=== PATIENT | female | born 1995 | race Caucasian/White ===

== ENCOUNTER 2019-12-14 08:52 | Inpatient (IN) ==
[2019-12-14] MEDS ORDERED: ZOFRAN IV ONE (09:45)
[2019-12-14] MEDS ORDERED: NS 1,000 ML IV ONE ×2 (09:45)
[2019-12-14] MEDS ORDERED: MORPHINE IV ONE (09:45)
[2019-12-14] MEDS ORDERED: ZOSYN 4.5 GM in NS 100 ML IV ONE (09:45)
[2019-12-14 10:12] LABS: BASO# 0.08 X1000 (0.0-0.2); BASO% 0.6 % (0.0-0.8); EOS# 0.28 X1000 (0.0-0.7); EOS% 2.2 % (0.0-10.0); HEMATOCRIT 36.5 % (37.0-47.0); HEMOGLOBIN 11.9 g/dL (12.0-16.0); IMM GRAN# 0.02 X1000 (0.0-0.04); IMM GRAN% 0.2 % (0.0-0.5); LYMPH# 1.79 X1000 (1.2-3.4); LYMPH% 14.1 % (20.5-51.1); MCH 26.4 PG (27-31); MCHC 32.6 g/dL (33-37); MCV 80.9 FL (81-99); MONO# 0.98 X1000 (0.11-0.59); MONO% 7.7 % (1.7-9.3); MPV 9.1 FL (7.4-10.4); NEUT# 9.56 X1000 (1.4-6.5); NEUT% 75.2 % (42.2-75.2); PLT 410 X1000 (130-400); RBC 4.51 XMIL (4.2-5.4); RDW 13.2 % (11.5-14.5); WBC 12.71 X1000 (4.8-10.8)
[2019-12-14 11:06] LABS: ALB/GLOB RATIO 0.8; ALBUMIN 3.7 g/dL (3.5-5.0); CALCIUM 8.9 mg/dL (8.8-10.2); CREATININE 2.6 mg/dL (0.5-0.9); MAGNESIUM 2.4 mg/dL (1.5-2.7); PHOSPHORUS 4.1 mg/dL (2.7-4.5); POTASSIUM 4.2 mmol/L (3.5-5.1); TOTAL BILIRUBIN 0.48 mg/dL (0.20-1.00); TOTAL PROTEIN 8.4 g/dL (6.3-8.3)
[2019-12-14 11:57] LABS: URINE SOURCE CATH
[2019-12-14 12:11] LABS: BILIRUBIN URINE NEGATIVE (NEGATIVE); BLOOD URINE SMALL (NEGATIVE); COLOR ORANGE; GLUCOSE URINE NEGATIVE (NEGATIVE); KETONE URINE NEGATIVE (NEGATIVE); LEUKOCYTES URINE LARGE (NEGATIVE); NITRITE URINE NEGATIVE (NEGATIVE); PROTEIN URINE 300 mg/dL (NEGATIVE); TURBIDITY URINE TURBID (CLEAR); UROBILINOGEN URINE 6 mg/dL (NORMAL)
[2019-12-14 12:18] LABS: UR AMPHETAMINES QUAL NONE DETECTED (NONE DETECT); UR BARBITUATES QUAL NONE DETECTED (NONE DETECT); UR BENZODIAZEPIN QUAL NONE DETECTED (NONE DETECT); UR CANNABINOIDS QUAL NONE DETECTED (NONE DETECT); UR COCAINE QUAL NONE DETECTED (NONE DETECT); UR METHADONE QUAL NONE DETECTED (NONE DETECT); UR OPIATES QUAL NONE DETECTED (NONE DETECT); UR OXYCODONE QUAL NONE DETECTED (NONE DETECT); UR PCP QUAL NONE DETECTED (NONE DETECT)
[2019-12-14 12:32] LABS: UR EPITHELIAL CELLS <10 /HPF (<10); URINE BACTERIA 2+ /HPF; URINE RBC TNTC /HPF (<10); URINE WBC TNTC /HPF (<10); URINE YEAST NONE SEEN
--- NOTE | 2019-12-14 13:19 | Diag Imaging Result Doc PS360 ---
CHEST-2 VIEWS - 12/14/2019 INDICATION: short of breath COMPARISON: 12/19/2018 FINDINGS: The lungs are normally expanded and clear. Heart size and mediastinal contours are normal. No pneumothorax or pleural effusion. IMPRESSION: Negative exam. Electronically signed by Rosalio Bryant 12/14/2019 1:17 PM
--- NOTE | 2019-12-14 13:36 | Diag Imaging Result Doc PS360 ---
EXAM: CT ABDOMEN/PELVIS W/O CONTRAST 12/14/2019 HISTORY: abd pain, acute kidney injury TECHNIQUE: This exam was performed using automated exposure control, adjustment of mA or kV according to patient size, and/or use of iterative reconstruction technique. COMMENT: There are calcified granulomata present in the left lower lobe which were at least in part demonstrated on the previous study of 11/28/2017. There is no evidence of acute disease in the visualized portion of the chest. The spleen is not enlarged. There is no evidence of cholelithiasis. The adrenal glands are not enlarged. There is a partially calcified and atrophic left kidney. This was also the case at the time the previous study. There is hydronephrosis on the right despite the presence of a stent. There is gas in the urinary bladder and the bladder wall is somewhat thickened in appearance. The lower pigtail of the stent is in the bladder. The right ureter is markedly thickened and distended. The nephrostomy catheter which was present at the time the previous study is no longer present. The degree of hydronephrosis is worse. The appendix is not distended. There is some solid stool in the left colon. The small bowel is not distended. The aorta is not distended. There is solid formed stool in the rectum. There is no evidence of free fluid. The regional skeleton is stable in appearance. IMPRESSION: Worsened obstructive changes in the right, solitary, kidney, and ureter. Possible cystitis. Constipation. Electronically signed by Alfredo Hull 12/14/2019 1:33 PM
--- NOTE | 2019-12-14 14:13 | PROVIDER DOCUMENTATION ---
This chart was entered by Francoise Flores Scribe, acting as scribe for Hi Morales MD. HPI-Abdominal Pain/GI Problem - General Chief Complaint: Nausea/Vomiting Stated Complaint: VOMITING STOMACH PAIN Time Seen by Provider: 12/14/19 09:37 Source: patient Allergies/Adverse Reactions: Patient Allergies Allergy/AdvReac Type Severity Reaction Status Date / Time povidone-iodine Allergy Intermediate RASH Verified 12/14/19 09:30 [From Betadine] ceftriaxone [From Rocephin] Allergy ANAPHYLAXIS Verified 12/14/19 09:30 - History of Present Illness-ABD Nature of Presenting Problems: 24yof presents to ED cc nausea,vomiting, generalized abdominal pain with LUQ greater than RUQ, decreased urine output and foul smelling urine for last 24hrs. Pt denies blood in vomiting or urine. Pt has hx of kidney disease, stents, nephrectomy and has to self cath every 6hrs. Pt is unsure if appendix is removed. Abdominal Pain Onset Location: reports: generalized abdomen Pain Radiation: reports: RUQ, LUQ Quality of Pain: reports: aching Severity in ED: reports: mild, moderate Onset/Duration: reports: 24 hours ago Timing: reports: still present Activities at Onset: reports: light activity Modifying Factors: worse with: vomiting Associated Symptoms: reports: genitourinary problems, nausea, vomiting Emesis Description: reports: clear Similar Symptoms Previously?: Yes Review of Systems - Adult - REVIEW OF SYSTEMS - ADULT Constitutional: reports: see HPI. denies: chills, fever Eyes: reports: no symptoms reported Ears, Nose, Mouth & Throat: reports: no symptoms reported Cardiovascular: reports: no symptoms reported Respiratory: reports: no symptoms reported Gastrointestinal: reports: see HPI, abdominal pain (generalized), nausea, vomi ting. denies: diarrhea Genitourinary: reports: see HPI, urinary retention (decreased output), other (foul smeeling urine). denies: hematuria Musculoskeletal: reports: no symptoms reported Integumentary: reports: no symptoms reported Neurological: reports: no symptoms reported Psychiatric: reports: no symptoms reported Endocrine: reports: no symptoms reported Hematologic/Lymphatic: reports: no symptoms reported Allergic/Immunologic: reports: no symptoms reported All Other Systems: Reviewed and Negative Past History - Adult - PAST MEDICAL HISTORY-ADULT Review of Records: reports: Old Records Reviewed, Nursing Assessment Review, Medications Reviewed, Social history reviewed & non-contributory. Major Childhood Illnesses: reports: denies history Cardiovascular: reports: denies history Respiratory: reports: asthma, sleep apnea Gastrointestinal: reports: denies history Obstetrical/Gynecological: reports: denies history Genitourinary: reports: kidney disease, kidney stones, other (R nephrostomy; neurogenic bladder) Musculoskeletal: reports: denies history Neurological: reports: denies history Psychiatric: reports: depression Endocrine/Immune: reports: denies history Other Conditions: reports: denies history - PRIOR SURGERIES/PROCEDURES Surgical/Procedure History: reports: tonsillectomy, other (R nephrostomy; renal stent) - PRIOR HOSPITALIZATIONS Prior Hospitalizations: reports: for other non-related - IMMUNIZATION STATUS Childhood Immunizations: See Nurse Assessment Flu Vaccine: See Nurse Assessment - FAMILY HISTORY Family History: reviewed, not pertinent Physical Exam-General - PHYSICAL EXAM-ADULT Initial Vital Signs Reviewed: Yes - CONSTITUTIONAL General Appearance: alert, no apparent distress, thin. negative: anxious, combative - EYES Eyes: PERRL/EOMI, pink conjunctivae. negative: photophobia - HEAD, EARS, NOSE, MOUTH & THROAT HENMT: normocephalic/atraumatic, other (speech deficit). negative: moist mucous membranes (dry), angioedema - NECK Neck: supple - RESPIRATORY Respiratory: chest non-tender, lungs clear, normal breath sounds. negative: wheezing - CARDIOVASCULAR Cardiovascular: normal peripheral pulses, tachycardia. negative: bradycardia - GASTROINTESTINAL (ABDOMEN) Abdominal Exam: soft, guarding (voluntary), tenderness (generalized with moderate palpation). negative: normal bowel sounds (hypoactive), rebound - MUSCULOSKELETAL Extremity: normal inspection, normal capillary refill. negative: deformity - SKIN Integumentary: normal color. negative: diaphoresis, jaundice - PSYCHIATRIC Psych/Mental Status: normal mood/affect, oriented x 3. negative: anxious, disheveled Progress - PLAN OF CARE/RESULTS Progress/Plan/Lab Results: Vital Signs - 8 hr 12/14/19 09:02 Temperature 98.2 F Pulse Rate 110 H Respiratory Rate 18 Blood Pressure 110/62 O2 Sat by Pulse Oximetry 96 Orders Category Date Time Status ED: Urine Bedside NOW Care 12/14/19 09:06 Active NEWS Score 2-4:Order NEWS Lactate Series NOW Care 12/14/19 09:05 Active Saline Loc DIRECTED Care 12/14/19 09:06 Active NPO Diet 12/14/19 09:[address] ABDOMEN/PELVIS W/O CONTRAST [CT] Stat Exams 12/14/19 09:44 Ordered AMYLASE [CHEM] Stat Lab 12/14/19 09:06 Uncollected BLOOD CULTURE [BLDCUL] Stat Lab 12/14/19 09:44 Ordered CBC WITH ELECTRONIC DIFF [HEME] Stat Lab 12/14/19 09:06 Uncollected COMPREHENSIVE METABOLIC PANEL [CHEM] Stat Lab 12/14/19 09:06 Uncollected LACTATE, PLASMA [CHEM] Q3H Lab 12/14/19 09:15 Uncollected LACTATE, PLASMA [CHEM] Q3H Lab 12/14/19 12:15 Uncollected LACTATE, PLASMA [CHEM] Q3H Lab 12/14/19 15:15 Uncollected LIPASE [CHEM] Stat Lab 12/14/19 09:06 Uncollected MAGNESIUM [CHEM] Stat Lab 12/14/19 09:44 Uncollected URINALYSIS W/POSS RFLX CULT [URINALYSIS] Stat Lab 12/14/19 09:06 Uncollected URINE DRUG SCREEN Stat Lab 12/14/19 09:44 Uncollected phos [PHOSPHORUS] [CHEM] Stat Lab 12/14/19 09:44 Uncollected 0.9% Sodium Chloride Inj [Ns] 1,000 ml Med 12/14/19 09:45 Active IV 999 mls/hr 0.9% Sodium Chloride Inj [Ns] 1,000 ml Med 12/14/19 09:45 Active IV 999 mls/hr Morphine Med 12/14/19 09:45 Discontinued 4 mg IV NOW ONE Ondansetron [Zofran] Med 12/14/19 09:45 Discontinued 4 mg IV NOW ONE Piperacillin/Tazobactam [Zosyn] 4.5 gm Med 12/14/19 09:45 Active 0.9% Sodium Chloride Inj [Ns] 100 ml IV NOW Result Diagrams: 12/14/19 10:00 12/14/19 10:00 - REASSESSMENT Reassessment #1 Time Reassessed: 14:04 Status: improving (Patient meets criteria for sepsis, although lactate is normal, has 2 SIRS criteria with acute on chronic renal failure and pyel onephritis. Given Zosyn and low dose vanco per pharmacy dosing. Will need admission to hospitalist and consult to urology. I offered transfer to her urologist at [facility], patient states she prefers to stay here.) - XRAY 1 XRAY: Bilateral XRAY Study: Chest Impression: See EMR Report (IMPRESSION: Negative exam. Electronically signed by Rosalio Bryant 12/14/2019 1:17 PM) - CT/MRI 1 CT Study: Abdomen Impression: See EMR Report (IMPRESSION: Worsened obstructive changes in the right, solitary, kidney, and ureter. Possible cystitis. Constipation. Electronically signed by Alfredo Hull 12/14/2019 1:33 PM) - CONSULTS/PCP/HOSPITALIST Notification #1 *Consult/PCP/Hospitalist*: Eleuterio urology front end technician paged at 1402 Time Discussed: 14:11 Consult Disposition: other (will consult) #2 Consult: FELY Quesada, hospitalist paged at 1402 Time Discussed: 14:12 Consult Disposition: Will see in ED, other Departure - Departure Date of Disposition Decision: 12/14/19 Time of Disposition Decision: 14:06 DIAGNOSIS: Pyelonephritis, Ureteral obstruction, right Acute on chronic renal failure Qualifiers: Acute renal failure type: unspecified Chronic kidney disease stage: stage 3 (moderate) Qualified Code(s): N17.9 - Acute kidney failure, unspecified; N18.3 - Chronic kidney disease, stage 3 (moderate) Sepsis with acute organ dysfunction without septic shock Qualifiers: Sepsis type: sepsis due to unspecified organism Severe sepsis acute organ dysfunction type: acute renal failure Acute renal failure type: with acute tubular necrosis Qualified Code(s): A41.9 - Sepsis, unspecified organism; R65.20 - Severe sepsis without septic shock; N17.0 - Acute kidney failure with tubular necrosis Disposition: ADMITTED INPATIENT 09 Certified Medical Emergency: Emergent Condition: Fair Referrals and Follow-Ups: Nadeen Flores CRNP [Primary Care Provider] - - Critical Care Note This patient required my direct & personal management of CC.: Yes Total Time (mins): 40 Critical Care Statement: This patient required my direct personal management to treat or rule out processes, the absence of which, could potentiallly result in sudden, clinically significant life or limb threatening deterioration. Attestation - Physician/ MARIFER Attestation Patient care was provided by Advanced Practice Provider:: No The physician spent face to face time with patient:: Yes Advanced Practice Provider documentation review:: Supervising physician onsite and consulted in the evaluation and care of this patient. The physician did have a face to face encounter with the patient. This chart was documented by the indicated scribe, (Francoise Flores, Ethan) and accurately reflects the services I performed and decisions made by me, Hi Morales MD, as attested by the provider's signature.
[2019-12-14] MEDS ORDERED: VANCOMYCIN IV PER PHARMACY MISC SCH (14:15)
[2019-12-14] MEDS ORDERED: NORCO-7.5 PO PRN (14:19)
[2019-12-14] MEDS ORDERED: MERREM 500 MG in NS 50 ML IV ONE (15:00)
[2019-12-14] MEDS ORDERED: VANCOMYCIN 1 GM/NS 1 GM/250 ML IVPB IV ONE ×2 (15:00→18:00)
[2019-12-14] MEDS ORDERED: PERICOLACE PO ONE (15:12)
[2019-12-14] MEDS: ZOFRAN IV PRN (15:32)
[2019-12-14] MEDS: MORPHINE IV PRN ×2 (15:35→22:44)
[2019-12-14] MEDS: NS 1,000 ML IV SCH (17:22)
--- NOTE | 2019-12-14 17:59 | HISTORY AND PHYSICAL ---
PRIMARY CARE PROVIDER: FELY Rosas. CHIEF COMPLAINT: Abdominal pain with vomiting. HISTORY OF PRESENT ILLNESS: Ms Sarahi Zepeda is a 24-year-old female with a medical history of neurogenic bladder, solitary kidney, chronic kidney disease and kidney stones in the past with stents who is followed by Urology. Dr. Constantine Layne located in the [facility] in [place]. She states that for at least 4 days she has had generalized abdominal pain, vomiting, decreased appetite. Urine is darkened and foul smelling. She denies fever, chills. She does state that she is a little constipated as well. Imaging reveals that she has worsening obstructive changes in the right solitary kidney and the ureter with possible cystitis. She does have a history of having an ESBL positive Klebsiella in the urine back in 2017. She also had Morganella in the urine in 2017. She has had Pseudomonas in the urine in 2018. The ER physician spoke with Dr. Mcclellan, urology, who was okay with keeping her here, so we are going to continue to monitor and treat. PAST MEDICAL HISTORY: 1. CKD stage 3. 2. Iron deficiency anemia. 3. Single right solitary kidney, left kidney was surgically removed. 4. Neurogenic bladder. She self straight caths. 5. Kidney stones. 6. Iron deficiency anemia. SURGICAL HISTORY: 1. Left nephrectomy. 2. Left nephrectomy. 3. Right ureteral stents. 4. Nephrostomy placement in the past. 5. Cleft palate repair. SOCIAL HISTORY: Denies tobacco, alcohol or illicit drug use. She states she is but . No kids. Not working. FAMILY HISTORY: Mother no medical conditions. Father she does not know. ALLERGIES: Rocephin causes her hands, feet and tongue to go numb and that is as far as it went because she received an EpiPen after that. She is also allergic to iodine. HOME MEDICATIONS: There is none put into the computer, but she states she takes iron. REVIEW OF SYSTEMS: Fourteen point review of systems are complete and all are negative those mentioned above in HPI. PHYSICAL EXAMINATION: VITAL SIGNS: Temperature 98.2 degrees, heart rate 110, respiratory rate 18, blood pressure 110/62, O2 saturation 96% on room air. She is 88 pounds, 5 feet 1 inch tall, BMI 16.6. GENERAL: Ms. Sarahi Zepeda is a 24-year-old female. She is in no acute distress. She is able answer questions appropriately. HEENT: Atraumatic, normocephalic. Pupils equal, round, reactive to light. Extraocular movements intact. Mucous membranes are dry. Speech is altered secondary to the history of cleft palate repair. NECK: Trachea midline. CARDIOVASCULAR: S1, S2. Tachycardic rate and rhythm. No rubs, gallops, murmurs. No lower extremity edema. +2 dorsalis and radial pulses. Negative JVD or carotid bruits. PULMONARY: Clear to auscultation, bilateral breath sounds. No accessory muscle use or work of breathing noted. GI: Soft, tender in all 4 quadrants. Positive bowel sounds x4.Extremities: Moves all extremities equally. Full range of motion. Neurologic: A and O x3. Follows commands. Sensory is intact. Skin: Warm, dry, intact but pale. LABORATORY DATA: White blood cells 12,000, hemoglobin 11, hematocrit 36, platelet count 410,000. Sodium 136, potassium 4.2, BUN 56, creatinine 2.6, glucose 95, calcium 8.9, phosphorus 4.1, magnesium 2.4, bilirubin 0.48, AST 13, ALT 5, albumin 3.7, amylase 71, lipase. Lactate 1.0. negative. Urinalysis 300 protein, small blood, 6 urobilinogen, large leukocytes, too numerous to count white blood cells, too numerous to count red blood cells, 2+ bacteria. Urine drug screen negative. IMAGING: Abdominal pelvic CT worsening obstructive changes in the right solitary kidney and ureter, possible cystitis and constipation. Chest x-ray is negative exam. ASSESSMENT AND PLAN: 1. Acute cystitis with worsening obstruction of the right solitary kidney and ureter. Dr. Mcclellan has been notified by the ER physician and is going to see the patient. She has a history of having ESBL positive Klebsiella UTI in the past. She has had Pseudomonas in the past, Morganella in the past in the urine. She has received a dose of vancomycin and Zosyn, but we are going to do meropenem due to the history of chronic kidney disease and only having 1 kidney and the fact that she has had a ESBL positive UTI in the past until we can find out what the bacteria is. Urinalysis, urine culture has been obtained. She is currently not in sepsis. 2. Neurogenic bladder. She self caths, which she can continue that, is sterile. 3. CKD stage 3. Her baseline creatinine is anywhere from 2.1 up to 3.0, and she is currently at 2.6, BUN today is 56. GFR 23. She ranges anywhere from 20 to 30 on her GFR. 4. Iron deficiency anemia. She is on iron at home. Her hemoglobin is 11 and hematocrit 36, stable. Dictated by FELY Szymanski for Toan Guzman MD cc: FELY Szymanski MD
--- NOTE | 2019-12-14 18:24 | HISTORY AND PHYSICAL ---
HISTORY OF PRESENT ILLNESS: She is being admitted. She is 24 with nausea, vomiting, abdominal pain, foul-smelling urine. She unfortunately is a very complicated urology patient. She has 1 kidney. 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 I think her relative states that it was associated with a judi to her ureter, but in any case, she has a stent. She is followed by a urologist in the [facility] area. She came in, evaluated and was found to have pyelo. Her CT unfortunately shows worsening hydro. She has got some renal dysfunction, which is above her baseline. UA had gross pyuria. In any case, the patient will be placed on antibiotics, broad spectrum, because she has had ESBL in the past. I was entertaining gentamicin, but we cannot do that with her renal dysfunction. We will continue hydration, check urine electrolytes. I anticipate she will need some sort of instrumentation because she has worsening hydro with a stent in place and Dr. Mcclellan has been notified of this and will evaluate her. This is a [id number] encounter note with Sangita Vang. cc: Toan Guzman MD
[2019-12-14] MEDS ORDERED: BENADRYL PO PRN (18:56)
[2019-12-14 19:46] LABS: UR CREAT RANDOM 13.8 mg/dL (11-20); UR PROT RANDOM 564.5 mg/dL
[2019-12-14] MEDS: PERICOLACE PO SCH (22:04)
[2019-12-14] MEDS: MERREM 500 MG in NS 50 ML IV SCH (22:05)
[2019-12-15] MEDS: MORPHINE IV PRN ×2 (06:22→12:23)
[2019-12-15] MEDS: NS 1,000 ML IV SCH ×3 (06:24→20:02)
[2019-12-15] MEDS: MERREM 500 MG in NS 50 ML IV SCH ×3 (06:25→22:35)
[2019-12-15 08:07] LABS: BASO# 0.01 X1000 (0.0-0.2); BASO% 0.2 % (0.0-0.8); EOS# 0.36 X1000 (0.0-0.7); EOS% 5.5 % (0.0-10.0); HEMATOCRIT 25.5 % (37.0-47.0); HEMOGLOBIN 7.8 g/dL (12.0-16.0); IMM GRAN# 0.02 X1000 (0.0-0.04); IMM GRAN% 0.3 % (0.0-0.5); LYMPH# 1.13 X1000 (1.2-3.4); LYMPH% 17.4 % (20.5-51.1); MCH 25.7 PG (27-31); MCHC 30.6 g/dL (33-37); MCV 84.2 FL (81-99); MONO# 0.39 X1000 (0.11-0.59); MPV 9.3 FL (7.4-10.4); NEUT% 70.6 % (42.2-75.2); PLT 283 X1000 (130-400); RBC 3.03 XMIL (4.2-5.4); WBC 6.51 X1000 (4.8-10.8)
[2019-12-15 08:33] LABS: ALBUMIN 2.8 g/dL (3.5-5.0); CALCIUM 8.3 mg/dL (8.8-10.2); CREATININE 2.6 mg/dL (0.5-0.9); MAGNESIUM 1.9 mg/dL (1.5-2.7); POTASSIUM 3.9 mmol/L (3.5-5.1); TOTAL BILIRUBIN 0.37 mg/dL (0.20-1.00); TOTAL PROTEIN 5.5 g/dL (6.3-8.3)
--- NOTE | 2019-12-15 08:37 | CONSULTATION ---
DATE OF CONSULTATION: 12/15/2019 CHIEF COMPLAINT: Abdominal pain and vomiting. HISTORY OF PRESENT ILLNESS: Ms. Zepeda is a 24-year-old, female with a history of neurogenic bladder, solitary right kidney, chronic kidney disease, and history of nephrolithiasis, who has been followed at [facility] by Dr. Layne regarding her chronic kidney disease and obstructed uropathy. The patient presented to the emergency room yesterday complaining of generalized fatigue, abdominal pain, vomiting, and decreased appetite. She said her urine was dark and foul- smelling. She denies any fevers or chills. She said she was significantly constipated and had not had a bowel movement in several days. The patient has been followed for a long period of time at both here in [place] as well as [facility] regarding her neurogenic bladder and solitary kidney. She has grown urinary bacteria in the past and had a ESBL in 2017. She has not been seen by urology in [place] since about 2017. She states she self catheterizes 3 times a day and occasional voiding between. The patient states her stent was last changed approximately 3 months ago. At the patient's bedside is her grandmother who relays all information for the patient. PAST MEDICAL HISTORY: 1. Chronic kidney disease. 2. Iron deficiency. 3. Solitary right kidney. 4. Neurogenic bladder, on self-catheterization. 5. History of nephrolithiasis. PAST SURGICAL HISTORY: 1. Left nephrectomy. 2. Chronic right ureteral stenting. 3. Placement of right nephrostomy tube. 4. Cleft palate repair. ALLERGIES: 1. Rocephin. 2. Iodine. SOCIAL HISTORY: Denies tobacco, alcohol, or illicit drug use. The patient is but . FAMILY HISTORY: Denies family history of malignancies. HOME MEDICATIONS: Denies taking home medication. REVIEW OF SYSTEMS: A 12-point review of systems was performed with all pertinent positives and negatives in the HPI. PHYSICAL EXAMINATION: Vital Signs: Temperature 98.1 degrees, heart rate 92, blood pressure 89/54, oxygen saturation 95% on room air. General: No acute distress. Resting comfortably in bed. Alert and oriented x3. Respiratory: Good respiratory effort without audible wheezing or rales. HEENT: Normocephalic, atraumatic. Pupils are equal, round, and reactive to light. Neck: Tracheal midline with no obvious masses. Cardiovascular: Regular rate and rhythm. Abdomen: Soft, nontender, nondistended. No palpable masses. : No suprapubic tenderness. No CVA tenderness. Musculoskeletal: Moving all extremities. Skin: No skin lesions or rashes. Neurologic: Gross motor and sensory intact. LABS: White blood cell count 12.7, hemoglobin 11.9, hematocrit 36.5, platelets 410,000. Sodium 136, potassium 4.2, chloride 103, bicarb 15, BUN 56, creatinine 2.6, glucose 95, calcium 8.9. Urinalysis shows [id number] RBCs and white blood cells, 2+ bacteria. IMAGING: CT of the abdomen and pelvis images reviewed without contrast which showed a solitary right kidney with a ureteral stent placed. Significant hydronephrosis was seen which appears to be chronic. There was minimal parenchyma thickening. There was a dilated ureter all the way to the bladder itself with thickening of the bladder wall. Stent appears to be in a good position. ASSESSMENT AND PLAN: Ms. Zepeda is a 24-year-old with a history of neurogenic bladder, solitary right kidney, history of recurrent infections, iron deficiency, and chronic kidney disease stage 3, who presents in consultation regarding possible urinary tract infection and acute on chronic kidney disease. The patient's renal function seems to be relatively stable;, however, with a creatinine of 2.6 from baseline of 2.1 to 2.3. The patient has been having abdominal pain, nausea, and vomiting, which has been chronic for her. She has a long history of constipation as well as dilated collecting system on the right side. She has had nephrostomy tubes as well as ureteral stenting. She has refused replacement of nephrostomy tube in the past. I talked with her. Her stent was last changed approximately 3 months ago. I recommended changing her stent today. If renal function does not improve, we may have to consider placement of nephrostomy tube in the future. Recommend talking with nephrology about her chronic kidney disease. She states she has not seen a shared services representative for some time. Also would recommend consulting gastrointestinal medicine as the patient has a long history of constipation and it sounds like she is describing more constipation related symptoms then urinary tract symptoms. We will follow up her urine culture and treat her with culture-specific antibiotics. We will continue nothing per oral at this time in preparation surgery later today. cc: Constantine Mcclellan MD [facility]
[2019-12-15] MEDS ORDERED: DIPRIVAN 1% ONE (09:39)
[2019-12-15] MEDS ORDERED: XYLOCAINE-MPF 2% ONE (09:40)
[2019-12-15] MEDS ORDERED: ZOFRAN ONE (10:58)
[2019-12-15] MEDS: ZOFRAN IV PRN ×2 (12:22→21:20)
--- NOTE | 2019-12-15 12:53 | OPERATIVE NOTE ---
PROCEDURE DATE: 12/15/2019 PREOPERATIVE DIAGNOSES: 1. Neurogenic bladder. 2. Right hydronephrosis. 3. Acute on chronic kidney disease. POSTOPERATIVE DIAGNOSES: 1. Neurogenic bladder. 2. Right hydronephrosis. 3. Acute on chronic kidney disease. PROCEDURE PERFORMED: 1. Cystoscopy. 2. Right retrograde pyelogram. 3. Right ureteral stent exchange. SURGEON: Constantine Mcclellan MD. RENEWABLE ENERGY ENGINEER: None. COMPLICATIONS: None. BLOOD LOSS: Minimal. DRAINS: A 8 x 22 cm right ureteral stent. ANESTHESIA: LMA. INDICATION FOR PROCEDURE: Ms. 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 She has been followed by Dr. Layne at [facility]. The patient presents to the hospital complaining of abdominal pain, nausea, and vomiting. She had a CT scan performed which showed constipation as well as severely hydronephrotic collecting system with loss of normal parenchyma, likely related to chronic obstruction. I talked with her and her grandmother. Her stent was changed 3 months ago. Concern arises around urinary tract infection as well as acute on chronic kidney disease. In talking with her and her grandmother, they desired surgical intervention. Risks, benefits, and alternatives of the procedure were discussed the patient. The patient elected to proceed. DESCRIPTION OF PROCEDURE: After informed consent was obtained, the patient was brought to the operating room and placed on the table in the supine position. Patient received preoperative antibiotics and underwent LMA placement. She was then positioned in the dorsal lithotomy position, was prepped and draped in the usual sterile fashion. A preoperative time-out was then performed with all parties in agreement including anesthesia, surgical and nursing staff. At which point I inserted a 21-Czech cystourethroscope through the urethra, into the bladder. A large amount of sentiment was seen in the bladder. It was irrigated out until no significant sediment was seen. The entirety of the bladder mucosa was inspected with no papillary lesions however there were significant trabeculations and cellules throughout. No obvious erythematous areas seen in the bladder itself. I was unable to visualize her left ureteral orifice. There was some squamous change overlying. The right ureteral orifice was dilated with ureteral stent in place with coil seen within the bladder. Rn Internal Medicine fluoroscopy was performed which showed good appearance of the stent with coil in the kidney as well as in the bladder. Using flexible grasper passed through the scope, the tip of the stent was removed and pulled out to the meatus. A ZIPwire was then passed through the scope and up into the kidney itself. This was left in place and stent was completely removed. The cystourethroscope was then reinserted and an open-ended catheter was passed through the scope, flushed all bubbles. The right ureteral orifice was cannulized and retrograde pyelogram was performed which showed a severe hydronephrotic system all the way from the bladder up into the kidney itself. This wire was left in place and then back-loaded through a cystourethroscope. An 8 x 22 cm stent was advanced over the wire with good curl in the kidney, endoscopically visualizing the bladder. Good drainage was seen through and around the stent. The patient's bladder was cycled multiple times and left empty. She was awoken and then taken to recovery in stable condition. DISPOSITION: Patient will be transferred back to the floor for observation. We will continue to monitor her. Her urine culture so far has no growth to date. Renal function remained stable at 2.6. cc: Constantine Mcclellan MD [facility]
--- NOTE | 2019-12-15 13:56 | Diag Imaging Result Doc PS360 ---
EXAM: RETROGRADES 2 OR 3 FILMS 12/15/2019 HISTORY: RT. STENT EXCHANGE, RT. RETROGRADE TECHNIQUE: 12 images, 18 seconds fluoroscopy time, 2.7 mGy. COMMENT: There is a ureteral stent on the right which was apparently exchanged by Dr. Mcclellan. There is considerable hydronephrosis. IMPRESSION: Right ureteral stent replacement. Electronically signed by Alfredo Hull 12/15/2019 1:54 PM
[2019-12-15] MEDS: ICAR-C PLUS PO SCH (15:27)
[2019-12-15] MEDS: PERICOLACE PO SCH ×2 (15:27→20:01)
[2019-12-15] MEDS: TYLENOL PO PRN ×2 (15:51→21:41)
--- NOTE | 2019-12-15 19:25 | PROGRESS NOTE ---
DATE: 12/15/2019 SUBJECTIVE: Patient has no major complaints. OBJECTIVE: Blood pressure is 96/54, heart rate of 111, respiratory rate of 19, temperature of 102.8 degrees.Cardiovascular: Regular rate and rhythm. Pulmonary: Bilateral breath sounds, clear to auscultation. GI: Soft, nontender, nondistended. Bowel sounds were positive. LABORATORY DATA: White count 6, hemoglobin and hematocrit 7.8 and 25, platelets of 283,000. Creatinine is at 2.6, which is stable. Bicarb down to 15. PROBLEM LIST: 1. I want to say she had pyelonephritis, history of extended spectrum beta-lactamases; although, urine culture is no growth. So, she is on meropenem because she has had an extended-spectrum beta lactamase, but right now we do not have any other cultures. We will continue antibiotics and follow. 2. Acute on chronic renal failure, which has been at a level of stage 4 and stable. DISPOSITION: Pending her clinical status, I do think a renal consult is appropriate per Dr. Mcclellan. I think, before we consult gastroenterology, possibly just trying to treat her constipation may be helpful. We will initiate MiraLAX and lactulose. cc: Toan Guzman MD
[2019-12-15] MEDS: MIRALAX PO SCH (20:01)
[2019-12-15] MEDS: LACTULOSE PO SCH (20:01)
[2019-12-16] MEDS: ZOFRAN IV PRN ×2 (06:59→14:23)
[2019-12-16] MEDS: MERREM 500 MG in NS 50 ML IV SCH ×3 (06:59→23:00)
[2019-12-16] MEDS: NS 1,000 ML IV SCH (06:59)
--- NOTE | 2019-12-16 07:11 | PROGRESS NOTE ---
DATE: 12/16/2019 SUBJECTIVE: Postoperative day 1 from cystoscopy, right retrograde pyelogram, and right ureteral stent exchange. The patient overall has done well. She did have a temperature yesterday afternoon postoperatively of 102.8 and some tachycardia. The patient's temperature overnight was 101 T-max, currently it is 98.4. Blood pressure is stable at 90/59, heart rate was 94 this morning. She denies any significant pain. She did tolerate some p.o. intake last night for dinner. She denies any nausea or vomiting this morning. OBJECTIVE: Vital Signs: Temperature 98.4 degrees, heart rate 94, blood pressure 90/59, oxygen saturation 99% on room air. General: No acute distress. Resting comfortably in bed. Alert and oriented x3. Respiratory: Good respiratory effort without audible wheezing or rales. Abdomen: Soft, nontender, nondistended. No palpable masses. Genitourinary: No suprapubic tenderness. No CVA tenderness. LABORATORIES: Blood cultures are negative at 48 hours. Urine culture shows no growth. Awaiting a.m. lab. ASSESSMENT AND PLAN: Ms. Zepeda is a 24-year-old with a history of neurogenic bladder, chronic kidney disease, iron deficiency, and solitary right kidney, who presents in consultation regarding right hydronephrosis and acute on chronic kidney disease. The patient's renal function was stable yesterday with a creatinine 2.6 from 2.6 on admission. She was taken to the operating room for cystoscopy and right retrograde pyelogram with right ureteral stent placement. Overall, I think patient has done well. She did have a spike in her temperature yesterday to 102.8. She is currently 98.4 this morning. We will continue to monitor. If she begins to spike fevers, renal function worsens, or elevated white blood cell count, we may have to consider nephrostomy tube for optimal drainage, that to be performed by Interventional Radiology. We will continue to monitor from a urologic standpoint. Please call with questions or concerns. cc: MD MARIAN White
[2019-12-16] MEDS: PERICOLACE PO SCH ×2 (09:17→21:06)
[2019-12-16] MEDS: ICAR-C PLUS PO SCH (09:17)
[2019-12-16] MEDS: TYLENOL PO PRN (09:17)
[2019-12-16] MEDS: MIRALAX PO SCH (09:17)
[2019-12-16] MEDS: LACTULOSE PO SCH ×2 (09:18→21:06)
[2019-12-16 09:43] LABS: BASO# 0.01 X1000 (0.0-0.2); BASO% 0.2 % (0.0-0.8); EOS# 0.19 X1000 (0.0-0.7); EOS% 3.7 % (0.0-10.0); HEMATOCRIT 24.7 % (37.0-47.0); HEMOGLOBIN 7.7 g/dL (12.0-16.0); LYMPH% 9.7 % (20.5-51.1); MCH 26.1 PG (27-31); MCHC 31.2 g/dL (33-37); MCV 83.7 FL (81-99); MONO# 0.23 X1000 (0.11-0.59); MONO% 4.5 % (1.7-9.3); MPV 9.3 FL (7.4-10.4); NEUT% 81.9 % (42.2-75.2); PLT 210 X1000 (130-400); RBC 2.95 XMIL (4.2-5.4); RDW 12.9 % (11.5-14.5); WBC 5.13 X1000 (4.8-10.8)
[2019-12-16 09:57] LABS: IRON SATURATION 11 %; TIBC 125 ug/dL; TOTAL IRON 14 ug/dL (49-151); UNBOUND IRON 111 ug/dL (112-346)
[2019-12-16 10:00] LABS: ALB/GLOB RATIO 1.2; ALBUMIN 2.8 g/dL (3.5-5.0); CALCIUM 7.9 mg/dL (8.8-10.2); CREATININE 2.8 mg/dL (0.5-0.9); MAGNESIUM 1.6 mg/dL (1.5-2.7); POTASSIUM 4.1 mmol/L (3.5-5.1); TOTAL BILIRUBIN 0.29 mg/dL (0.20-1.00); TOTAL PROTEIN 5.1 g/dL (6.3-8.3)
[2019-12-16 10:40] LABS: FERRITIN 429 ng/mL (13-150)
[2019-12-16] MEDS ORDERED: SODIUM BICARBONATE 8.4% 150 MEQ in D5W 1,000 ML IV SCH (11:15)
[2019-12-16] MEDS ORDERED: NS 500 ML IV ONE (16:12)
--- NOTE | 2019-12-16 17:03 | PROGRESS NOTE ---
DATE: 12/16/2019 SUBJECTIVE: Patient has no major complaints. OBJECTIVE: Vital Signs: Blood pressure 85/49, heart rate 80, respiratory 19, temperature 98.9 degrees. Cardiovascular: Regular rate and rhythm. Pulmonary: Bilateral breath sounds, clear to auscultation. GI: Soft, nontender, nondistended. Bowel sounds are positive. LABORATORY DATA: White count is 5, hemoglobin and hematocrit 7.7 and 24, platelets 210,000. Bicarb is down to 12. Creatinine is at 2.8 with a BUN down to 36. Iron is 14, iron sat 11. PROBLEM LIST: 1. Pyelonephritis. We will continue empiric antibiotic she is on meropenem but all her cultures are negative, so have to decide what to send her home on. We may end up doing something like Levaquin or something to that effect. Her last urine cultures grew out Pseudomonas that was actually pansensitive, so in any case. 2. Acute on chronic renal failure. She is at stage IV. She has hydro and stent. We are going to continue to monitor. No nephrostomy. 3. Constipation, is improved. DISPOSITION: Pending clinical status, anticipate discharge next 1 to 2 days. cc: Toan Guzman MD
[2019-12-16] MEDS ORDERED: VANCOMYCIN 1,200 MG in NS 250 ML IV SCH (18:00)
--- NOTE | 2019-12-16 20:30 | NEPHROLOGY CONSULTATION ---
DATE: 12/16/2019 REASON FOR CONSULTATION: Chronic kidney disease stage 3. HISTORY OF PRESENT ILLNESS: Ms. Zepeda is a 24-year-old woman with a history of a neurogenic bladder for which she performs self catheterization at home. She has frequent admissions to multiple different hospitals. This includes [facility] and [facility]. Her last admission to this facility was back in August 2018. She presented to the hospital here with abdominal pain and vomiting, low appetite and tenderness, and dark foul-smelling urine. She was admitted to the hospital and also evaluated by Dr. Mcclellan, who feels that she has urinary tract infection, and he recommended exchange of her stents. This was performed on 12/15/2019, yesterday. She did have right hydronephrosis. Despite this procedure, her creatinine is 2.8 today which is unchanged from previous and unchanged from her baseline creatinine which has been greater than 2 for several years. We were asked to see her to assist with the management of her chronic kidney disease. She is receiving IV bicarbonate drip as well as meropenem and vancomycin. At the time of my exam, she complains of lower abdominal pain and she is crying. She stated, "I need to shit." PAST MEDICAL HISTORY: As above. HOME MEDICATIONS: Multivitamin. ALLERGIES: Povidone and ceftriaxone. SOCIAL HISTORY: She is and is attended by her mother. No alcohol or tobacco. FAMILY HISTORY: Otherwise noncontributory. REVIEW OF SYSTEMS: Otherwise noncontributory. PHYSICAL EXAMINATION: Vital Signs: Blood pressure 85/49, heart rate 80, respirations 19, afebrile. General: Young woman, lying in bed in acute pain, tearful. Skin: Warm and dry. Eyes: Conjunctivae are pink. Pupils are equal. Neck: Neck veins are not distended. Oropharynx: Dry. Heart: Regular. No gallops. Lungs: Equal. No crackles or wheezes. Abdomen: Soft, but tender, especially in the suprapubic area. No organomegaly. No masses. Extremities: No edema, clubbing, or cyanosis. IMPRESSION: Chronic kidney disease, stage 3B to 4. Little change from her baseline. She does have a moderate metabolic acidosis associated with her chronic kidney disease. Anion gap is modestly elevated at 16, consistent with her kidney disease. I agree with antibiotic treatment, stent exchange, intravenous bicarbonate. Will follow with you. cc: Sonny Hinson MD [facility]
[2019-12-17] MEDS: ICAR-C PLUS PO SCH (08:03)
[2019-12-17] MEDS: MERREM 500 MG in NS 50 ML IV SCH (08:03)
[2019-12-17] MEDS: LACTULOSE PO SCH (08:04)
[2019-12-17] MEDS: PERICOLACE PO SCH (08:04)
[2019-12-17] MEDS: MIRALAX PO SCH (08:04)
[2019-12-17] MEDS: ZOFRAN IV PRN (08:05)
[2019-12-17 08:58] LABS: BASO# 0.02 X1000 (0.0-0.2); BASO% 0.8 % (0.0-0.8); EOS# 0.56 X1000 (0.0-0.7); EOS% 22.6 % (0.0-10.0); HEMATOCRIT 26.8 % (37.0-47.0); HEMOGLOBIN 8.1 g/dL (12.0-16.0); IMM GRAN# 0.02 X1000 (0.0-0.04); IMM GRAN% 0.8 % (0.0-0.5); LYMPH# 0.71 X1000 (1.2-3.4); LYMPH% 28.6 % (20.5-51.1); MCH 25.7 PG (27-31); MCHC 30.2 g/dL (33-37); MCV 85.1 FL (81-99); MONO# 0.16 X1000 (0.11-0.59); MONO% 6.5 % (1.7-9.3); MPV 9.3 FL (7.4-10.4); NEUT# 1.01 X1000 (1.4-6.5); NEUT% 40.7 % (42.2-75.2); PLT 230 X1000 (130-400); RBC 3.15 XMIL (4.2-5.4); RDW 12.8 % (11.5-14.5); WBC 2.48 X1000 (4.8-10.8)
[2019-12-17 09:59] LABS: EOS 18 % (1-10); LYMPHS 30 % (21-51); MONO 8 % (1-9); SEGS 42 % (42-75)
[2019-12-17 10:57] LABS: AGAP 14; ALB/GLOB RATIO 0.8; ALBUMIN 2.4 g/dL (3.5-5.0); ALKALINE PHOSPHATASE 54 U/L (32-104); BUN 25 mg/dL (8-22); CALCIUM 8.1 mg/dL (8.8-10.2); CHLORIDE 114 mmol/L (98-107); COSMO 286; CREATININE 2.5 mg/dL (0.5-0.9); GLUCOSE 100 mg/dL (70-104); GOT 18 U/L (10-30); GPT 7 U/L (10-36); MAGNESIUM 1.7 mg/dL (1.5-2.7); POTASSIUM 3.7 mmol/L (3.5-5.1); SODIUM 141 mmol/L (136-145); TCO2 13 mmol/L (25-35); TOTAL BILIRUBIN 0.17 mg/dL (0.20-1.00); TOTAL PROTEIN 5.4 g/dL (6.3-8.3)
[2019-12-17 16:06] VITALS: BP 121/65
[2019-12-17] MEDS ORDERED: FOLIC ACID 1 MG in NS 50 ML IV SCH (16:15)
--- NOTE | 2019-12-17 20:04 | DISCHARGE SUMMARY ---
ADMISSION DATE: 12/14/2019 DISCHARGE DATE: 12/17/2019 SUBJECTIVE: Patient has no major complaints. She is doing well. She is sitting up in bed. She has been walking, eating. No nausea, vomiting. No abdominal pain. She looks a lot better within 24 hours than yesterday. In any case admit date was 12/14, discharge to . DISCHARGE DIAGNOSIS: Pyelonephritis in the setting of empiric antibiotic, she is on meropenem. Urine culture blood cultures have been negative now. HOSPITAL COURSE: Her initial white count was 12. Her initial urine showed large leukocytes, too numerous to count white blood cells red blood cells, nitrite negative, and her initial creatinine was 2.6 and went up to 2.8. On day of discharge it is 2.5. Dr. Mcclellan was consulted. She did undergo cystoscopy on the and she had a right ureteral stent exchange and she was stable. Dr. Hinson was consulted and felt that her kidney function was stable. She was at a GFR stage IIIB. She is currently 4 today, no . she will probably be higher than that, not estimated today, that's odd, but stable so Dr. Hinson will follow her after we get out of here. DISCHARGE MEDICATIONS: Multivitamin, doxycycline 100 p.o. b.i.d. for 10 days just to complete a course of antibiotics. MiraLAX 17 daily because she does have constipation. FOLLOWUP: Dr. Mcclellan in 1 to 2 weeks. Follow up with Dr. Hinson 1 to 2 weeks. TIME SPENT: 32 minutes. cc: Toan Guzman MD
== END 2019-12-17 17:35 | disposition home or self-care (01) | DRG 660 ==
LOC: ED 08:52 → 3N 15:40
PROVIDERS: ATTEND Internal Medicine

== ENCOUNTER 2019-12-30 09:55 | Inpatient (IN) ==
[2019-12-30] MEDS ORDERED: ZOFRAN IV ONE (10:56)
[2019-12-30] MEDS ORDERED: TYLENOL PO ONE (10:57)
[2019-12-30] MEDS ORDERED: TYLENOL PR ONE (10:59)
[2019-12-30] MEDS ORDERED: MORPHINE IV ONE ×2 (11:02→15:19)
[2019-12-30] MEDS ORDERED: NS 500 ML IV ONE (11:03)
[2019-12-30 11:32] LABS: BASO# 0.05 X1000 (0.0-0.2); BASO% 0.5 % (0.0-0.8); EOS# 0.03 X1000 (0.0-0.7); EOS% 0.3 % (0.0-10.0); HEMATOCRIT 31.1 % (37.0-47.0); HEMOGLOBIN 9.5 g/dL (12.0-16.0); IMM GRAN# 0.02 X1000 (0.0-0.04); IMM GRAN% 0.2 % (0.0-0.5); LYMPH# 1.31 X1000 (1.2-3.4); LYMPH% 12.7 % (20.5-51.1); MCH 26.8 PG (27-31); MCHC 30.5 g/dL (33-37); MCV 87.6 FL (81-99); MONO# 0.83 X1000 (0.11-0.59); MONO% 8.1 % (1.7-9.3); MPV 9.3 FL (7.4-10.4); NEUT# 8.05 X1000 (1.4-6.5); NEUT% 78.2 % (42.2-75.2); PLT 244 X1000 (130-400); RBC 3.55 XMIL (4.2-5.4); RDW 14.2 % (11.5-14.5); WBC 10.29 X1000 (4.8-10.8)
[2019-12-30 11:40] LABS: URINE SOURCE CATH
[2019-12-30 11:43] LABS: BILIRUBIN URINE NEGATIVE (NEGATIVE); BLOOD URINE MODERATE (NEGATIVE); COLOR ORANGE; GLUCOSE URINE NEGATIVE (NEGATIVE); KETONE URINE NEGATIVE (NEGATIVE); LEUKOCYTES URINE LARGE (NEGATIVE); NITRITE URINE NEGATIVE (NEGATIVE); PROTEIN URINE 100 mg/dL (NEGATIVE); SP GRAVITY URINE 1.007; TURBIDITY URINE TURBID (CLEAR); UROBILINOGEN URINE NORMAL (NORMAL)
[2019-12-30 11:45] LABS: UR EPITHELIAL CELLS <10 /HPF (<10); URINE BACTERIA NEGATIVE /HPF; URINE RBC <10 /HPF (<10); URINE WBC TNTC /HPF (<10)
[2019-12-30 11:46] LABS: ALB/GLOB RATIO 0.9; ALBUMIN 3.2 g/dL (3.5-5.0); CALCIUM 8.5 mg/dL (8.8-10.2); CREATININE 2.8 mg/dL (0.5-0.9); POTASSIUM 4.9 mmol/L (3.5-5.1); TOTAL BILIRUBIN 0.46 mg/dL (0.20-1.00); TOTAL PROTEIN 6.7 g/dL (6.3-8.3)
--- NOTE | 2019-12-30 12:14 | PROVIDER DOCUMENTATION ---
HPI-Abdominal Pain/GI Problem - General Chief Complaint: Abdominal Pain Stated Complaint: ABD PAIN,PATIENT HAVE ONE KIDNEY,VOMITING Time Seen by Provider: 12/30/19 10:20 Source: patient, family Allergies/Adverse Reactions: Patient Allergies Allergy/AdvReac Type Severity Reaction Status Date / Time povidone-iodine Allergy Intermediate RASH Verified 12/14/19 09:30 [From Betadine] ceftriaxone [From Rocephin] Allergy ANAPHYLAXIS Verified 12/14/19 09:30 Home Medications: Home Medication List Medication Instructions Recorded Confirmed Last Taken Type Iron,Carb/Vit C/Vit B12/Folic 1 tab PO DAILY 12/14/19 12/30/19 12/30/19 History [Iron 100 Plus Tablet] - History of Present Illness-ABD Nature of Presenting Problems: Patient c/o right upper/lower quadrant/right flank/right back pain onset 2 days ago. She sts pain is intermittent and sharp in nature. Also c/o several episodes of N/V two days ago. No N/V at present, though she states that she has not tried to eat or drink anything over the past day. Her grandmother sts that she was able to hold down some spite. She reports chills and body aches but no fever. She is still able to urinate on her own but reports that she self caths 3 times a day per her urologist instructions to help with urinary retention. She is reporting dysuria. Denies vomiting. She denies being around anyone with similar symptoms or any recent travel. Abdominal Pain Onset Location: reports: RUQ, RLQ, flank Pain Radiation: reports: flank, back Quality of Pain: reports: sharp Severity in ED: reports: moderate Onset/Duration: reports: 2 days ago Timing: reports: still present, intermittent Activities at Onset: reports: none Exposure to sick contacts?: No Modifying Factors: improves with: nothing Associated Symptoms: reports: dizziness, nausea, vomiting Last BM: other (yesterday) Dark Stools Present?: reports: none noticed Rectal Bleeding: reports: none Rectal Pain: reports: none Bruising or Bleeding Gums?: No Similar Symptoms Previously?: No Recently seen or treated by another doctor?: Yes (Patient had recent hospital admission. Discharged 12/17/19.) Review of Systems - Adult - REVIEW OF SYSTEMS - ADULT Constitutional: reports: chills Eyes: reports: no symptoms reported Ears, Nose, Mouth & Throat: reports: no symptoms reported Cardiovascular: reports: no symptoms reported Respiratory: reports: no symptoms reported Gastrointestinal: reports: see HPI, nausea, vomiting Genitourinary: reports: dysuria, flank pain, frequent UTI's, urinary retention Musculoskeletal: reports: no symptoms reported Integumentary: reports: no symptoms reported Neurological: reports: dizziness/vertigo Psychiatric: reports: no symptoms reported Endocrine: reports: no symptoms reported Hematologic/Lymphatic: reports: no symptoms reported Allergic/Immunologic: reports: no symptoms reported All Other Systems: Reviewed and Negative Past History - Adult - PAST MEDICAL HISTORY-ADULT Review of Records: reports: Old Records Reviewed, Nursing Assessment Review, Medications Reviewed, Social history reviewed & non-contributory. Major Childhood Illnesses: reports: denies history Cardiovascular: reports: denies history Respiratory: reports: asthma, sleep apnea Gastrointestinal: reports: denies history Obstetrical/Gynecological: reports: denies history Genitourinary: reports: kidney disease, kidney stones, retention, other (R nephrostomy; neurogenic bladder) Musculoskeletal: reports: denies history Neurological: reports: denies history Psychiatric: reports: depression Endocrine/Immune: reports: denies history Other Conditions: reports: denies history - PRIOR SURGERIES/PROCEDURES Surgical/Procedure History: reports: tonsillectomy, other (R nephrostomy; renal stent, cleft palate sygery) - PRIOR HOSPITALIZATIONS Prior Hospitalizations: reports: for other non-related - IMMUNIZATION STATUS Childhood Immunizations: See Nurse Assessment Flu Vaccine: See Nurse Assessment - FAMILY HISTORY Family History: reviewed, not pertinent - SOCIAL HISTORY Smoking: denies Substance Use: none/never Alcohol Use Frequency: never Living Situation: family Physical Exam-General - PHYSICAL EXAM-ADULT Initial Vital Signs Reviewed: Yes - CONSTITUTIONAL General Appearance: alert, mild distress - EYES Eyes: PERRL/EOMI - HEAD, EARS, NOSE, MOUTH & THROAT HENMT: normocephalic/atraumatic. negative: moist mucous membranes - NECK Neck: supple - RESPIRATORY Respiratory: chest non-tender, normal breath sounds, no pleuratic chest pain, no respiratory distress, no accessory muscle use - CARDIOVASCULAR Cardiovascular: normal peripheral pulses, no edema, no murmur, tachycardia - GASTROINTESTINAL (ABDOMEN) Abdominal Exam: normal bowel sounds, soft, tenderness - MUSCULOSKELETAL Back Exam: CVA tenderness Peripheral Pulses: radial (R): 2+, radial (L): 2+, dorsalis-pedis (R): 2+, dorsalis-pedis (L): 2+ - SKIN Integumentary: warm/dry, pallor, warm Progress - PLAN OF CARE/RESULTS Progress/Plan/Lab Results: Vital Signs - 8 hr 12/30/19 10:05 12/30/19 11:22 12/30/19 11:38 Temperature 99.5 F 100.0 F H 101.9 F H Pulse Rate 115 H 94 H Respiratory Rate 20 18 Blood Pressure 93/61 119/64 O2 Sat by Pulse Oximetry 96 95 Bedside Urine ED: Urine Bedside Start: 12/30/19 11:39 Freq: NOW Status: Inactive Protocol: Activity Type Activity Date Activity User E-Sign Co-Sign Detail Recorded Client Recorded Date Recorded By Edit Status 12/30/19 11:40 [id number] Active=>Inactive [id number] 12/30/19 11:40 [id number] Laboratory Results - last 24 hr 12/30/19 12/30/19 12/30/19 11:05 11:05 11:05 WBC 10.29 RBC 3.55 L Hgb 9.5 L Hct 31.1 L MCV 87.6 MCH 26.8 L MCHC 30.5 L RDW Std Deviation 14.2 Plt Count 244 MPV 9.3 Immature Gran % (Auto) 0.2 Neut % (Auto) 78.2 H Lymph % (Auto) 12.7 L [place] % (Auto) 8.1 Eos % (Auto) 0.3 Baso % (Auto) 0.5 Immature Gran # (Auto) 0.02 Neut # (Auto) 8.05 H Lymph # (Auto) 1.31 [place] # (Auto) 0.83 H Eos # (Auto) 0.03 Baso # (Auto) 0.05 Sodium 136 Potassium 4.9 Chloride 107 Carbon Dioxide 18 L Anion Gap 11 BUN 36 H Creatinine 2.8 H Estimated GFR/1.73 m2 21 BUN/Creatinine Ratio 13 Glucose 101 Calculated Osmolality 280 Calcium 8.5 L Total Bilirubin 0.46 AST 18 ALT 8 L Alkaline Phosphatase 69 Total Protein 6.7 Albumin 3.2 L Globulin 3.5 Albumin/Globulin Ratio 0.9 Plasma Lactate 0.6 Urine Source Urine Color Urine Turbidity Urine pH Ur Specific [place] Urine Protein Ur Glucose (Stick) Ur Ketones (Stick) Urine Blood Urine Nitrite Urine Bilirubin Urobilinogen Dipstick Urine Leukocytes Urine WBC (Auto) Urine RBC (Auto) U Epithel Cells (Auto) Urine Bacteria (Auto) 12/30/19 11:31 WBC RBC Hgb Hct MCV MCH MCHC RDW Std Deviation Plt Count MPV Immature Gran % (Auto) Neut % (Auto) Lymph % (Auto) [place] % (Auto) Eos % (Auto) Baso % (Auto) Immature Gran # (Auto) Neut # (Auto) Lymph # (Auto) [place] # (Auto) Eos # (Auto) Baso # (Auto) Sodium Potassium Chloride Carbon Dioxide Anion Gap BUN Creatinine Estimated GFR/1.73 m2 BUN/Creatinine Ratio Glucose Calculated Osmolality Calcium Total Bilirubin AST ALT Alkaline Phosphatase Total Protein Albumin Globulin Albumin/Globulin Ratio Plasma Lactate Urine Source CATH Urine Color ORANGE Urine Turbidity TURBID Urine pH 6.0 Ur Specific [place] 1.007 Urine Protein 100 A Ur Glucose (Stick) NEGATIVE Ur Ketones (Stick) NEGATIVE Urine Blood MODERATE A Urine Nitrite NEGATIVE Urine Bilirubin NEGATIVE Urobilinogen Dipstick NORMAL Urine Leukocytes LARGE A Urine WBC (Auto) TNTC A Urine RBC (Auto) <10 U Epithel Cells (Auto) <10 Urine Bacteria (Auto) NEGATIVE Orders Category Date Time Status NEWS Score 2-4:Order NEWS Lactate Series NOW Care 12/30/19 10:10 Active BLOOD CULTURE [BLDCUL] Stat Lab 12/30/19 11:10 Results CBC WITH DIFF [HEME] Stat Lab 12/30/19 11:05 Completed COMPREHENSIVE METABOLIC PANEL [CHEM] Stat Lab 12/30/19 11:05 Completed INFLUENZA SCREEN A/B Stat Lab 12/30/19 11:31 Received LACTATE, PLASMA [CHEM] Lab 12/30/19 13:15 Uncollected LACTATE, PLASMA [CHEM] Lab 12/30/19 16:15 Uncollected LACTATE, PLASMA [CHEM] Q3H Lab 12/30/19 11:05 Completed TEST-URINE [PREG] Stat Lab 12/30/19 11:31 Received URINALYSIS W/POSS RFLX CULT [URINALYSIS] Stat Lab 12/30/19 11:31 Completed 0.9% Sodium Chloride Inj [Ns] 500 ml Med 12/30/19 11:03 Discontinued IV 999 mls/hr Acetaminophen [Tylenol] Med 12/30/19 10:57 Discontinued 650 mg PO NOW ONE Acetaminophen [Tylenol] Med 12/30/19 10:59 Discontinued 650 mg MN NOW ONE Morphine Med 12/30/19 11:02 Discontinued 2 mg IV NOW ONE Ondansetron [Zofran] Med 12/30/19 10:56 Discontinued 4 mg IV NOW ONE Result Diagrams: 12/30/19 11:05 12/30/19 11:05 - REASSESSMENT Reassessment #1 Time Reassessed: 12:30 (Pt. sts pain has improved and resting comfortably in bed. Updated patient and her grandmother of lab results and that we are going to order a CT abd/pelvis. ) Status: improving Reassessment #2 Time Reassessed: 02:00 (Informed patient and pt's grandmother of CT results and that we are going to consult Dr. Perdomo.) Status: other - CT/MRI 1 CT Study: Abdomen, Pelvis Impression: See EMR Report (COMMENT: There are calcified granulomata present in the left lower lobe. There has been no significant change in this regard since 12/14/2019. There is a calcified atrophic left kidney. There is marked hydronephrosis on the right. There is considerable cortical atrophy. This is if anything worse than on 12/14/2019. There is a right ureteral stent in place as there was on the previous study. The urinary bladder is slightly distended and there is gas within the bladder. The wall of bladder is not as thickened as on the previous study. There is a fair amount of stool throughout the colon. The small bowel is not distended. There is no evidence of free fluid. The regional skeleton appears to be intact. IMPRESSION: Slightly worsened right hydronephrosis despite the presence of the ureteral stent. Constipation. Apparently improved cystitis.) - CONSULTS/PCP/HOSPITALIST Notification #1 *Consult/PCP/Hospitalist*: Dr. Constantine Mcclellan Time Discussed: 14:30 Reason/Comments: Worsened hydronephrosis,UTI,Ureteral Stent Consult Disposition: other (Admit to hospitalist and consult him and he will see patient.) #2 Consult: Dr. Glover with Hospitalist. Time Discussed: 15:15 Consult Disposition: Will see in ED, Admit Departure - Departure Date of Disposition Decision: 12/30/19 Time of Disposition Decision: 15:15 DIAGNOSIS: UTI (urinary tract infection) Qualifiers: Urinary tract infection type: site unspecified Hydronephrosis Qualifiers: Hydronephrosis type: unspecified Qualified Code(s): N13.30 - Unspecified hydronephrosis Fever Qualifiers: Fever type: unspecified Qualified Code(s): R50.9 - Fever, unspecified Abdominal pain Qualifiers: Abdominal location: right upper quadrant Qualified Code(s): R10.11 - Right upper quadrant pain Disposition: ADMITTED INPATIENT 09 Certified Medical Emergency: Emergent Condition: Critical Referrals and Follow-Ups: Nadeen Flores CRNP [Primary Care Provider] - - Critical Care Note This patient required my direct & personal management of CC.: No Attestation - Physician/ MARIFER Attestation Patient care was provided by Advanced Practice Provider:: Yes Advanced Practice Provider:: Cecilia Eason Advanced Practice Provider documentation review:: The Mid-level provider documentation, treatment plan and medical decision making was reviewed by the physician who agrees with all treatment and medical decision making by the MLP. The physician spent face to face time with patient:: No Advanced Practice Provider documentation review:: Supervising physician onsite and consulted in the evaluation and care of this patient. The physician did not have a face to face encounter with the patient.
--- NOTE | 2019-12-30 13:21 | Diag Imaging Result Doc PS360 ---
EXAM: CT ABDOMEN/PELVIS W/O CONTRAST 12/30/2019 HISTORY: R abd, flank, back pain,fever,dysuria TECHNIQUE: This exam was performed using automated exposure control, adjustment of mA or kV according to patient size, and/or use of iterative reconstruction technique. COMMENT: There are calcified granulomata present in the left lower lobe. There has been no significant change in this regard since 12/14/2019. There is a calcified atrophic left kidney. There is marked hydronephrosis on the right. There is considerable cortical atrophy. This is if anything worse than on 12/14/2019. There is a right ureteral stent in place as there was on the previous study. The urinary bladder is slightly distended and there is gas within the bladder. The wall of bladder is not as thickened as on the previous study. There is a fair amount of stool throughout the colon. The small bowel is not distended. There is no evidence of free fluid. The regional skeleton appears to be intact. IMPRESSION: Slightly worsened right hydronephrosis despite the presence of the ureteral stent. Constipation. Apparently improved cystitis. Electronically signed by Alfredo Hull 12/30/2019 1:19 PM
[2019-12-30] MEDS ORDERED: MERREM 500 MG in NS 50 ML IV ONE (15:14)
--- NOTE | 2019-12-30 16:47 | HISTORY AND PHYSICAL ---
HISTORY OF PRESENT ILLNESS: This is a 24-year-old patient of Dr. Nadeen Flores. She was here last in the hospital on 12/14/2019. Last admission, she has a solitary kidney and neurogenic bladder, chronic kidney disease, kidney stones in the past, and she had stents placed in the right ureter, hydronephrosis. I think Dr. Mcclellan tried to encourage her to get a nephrostomy tube, but she refused. Apparently was feeling better according to mother when she got home, but she does self- catheterizations twice a day. She says they do not give her 3 catheters a day and she started feeling bad again yesterday evening. Today, a lot of pain in her flank and right side and again hydronephrosis, looks like pyelonephritis. Past medical history of neurogenic bladder, solitary kidney, chronic kidney disease, kidney stones in the past, and stents placed. Dr. Constantine Layne located at [facility] in [place]. She was seen by Dr. Mcclellan on this last admission. She had Pseudomonas in the urine in 2018 . PAST MEDICAL HISTORY: 1. Chronic kidney disease stage III. 2. Iron deficiency anemia. 3. Single right solitary kidney, left kidney surgically removed. 4. Neurogenic bladder. She self catheterizes. 5. Kidney stones. 6. Iron deficiency anemia. SURGICAL HISTORY: 1. Left nephrectomy. 1. Right ureteral stents. 2. Nephrostomy placement in the past. 3. 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 SOCIAL HISTORY: Denies tobacco, alcohol, illicit drugs. She is but . No kids and not working. FAMILY HISTORY: Mother with no medical conditions. Father she does not know. ALLERGIES: Rocephin causes her hands, feet and tongue to go numb. She has received an EpiPen in the past for that. She is allergic to iodine. REVIEW OF SYSTEMS: General: She does not report fever or chills, but has had general malaise. She is certainly not gaining weight. HEENT: Does not report any change in hearing or visual acuity. Oral and nasal mucosa with no complaints. Respiratory: No increased work of breathing. Cardiovascular: No chest pain or tachy palpitation. GI/: As above. No change reported in her bowels or hematochezia. Musculoskeletal/Neurologic: No focal changes. Endocrinologic/hematologic: No significant history. PHYSICAL EXAMINATION: GENERAL: She is awake and alert. She is obviously uncomfortable and complains of right flank pain. Her mother was at the bedside. She is alert and oriented x3. VITAL SIGNS: Temperature 99.9 degrees, pulse 77, respirations 22, blood pressure 96/56. HEENT: Pupils are equal and round. LUNGS: Clear in all lung padilla. CARDIOVASCULAR: Regular rhythm and rate without murmur or S3. ABDOMEN: Soft. SKIN: Warm and dry. NECK: Supple. No cervical adenopathy appreciated. Height 5 feet 1 inch. Weight 90 pounds weight. LABORATORY DATA: White blood cell count 10,290, hematocrit 31, hemoglobin is 9, MCV is 87, platelet count 244,000. Sodium 136, potassium 4.9, chloride 107, BUN 36, creatinine is 2.8, blood sugar is 101, calcium 8.5, AST 18, ALT is 8, alkaline phosphatase 69, albumin 3.2. Urinalysis has acr-kspyeacs-gs-count white blood cells, red blood cells less than 10, bacteria was negative. Abdominal and pelvic CT without contrast: Slightly worsened right hydronephrosis despite presence of ureteral stent, constipation apparently improved, cystitis. ASSESSMENT AND PLAN: 1. Right hydronephrosis/pyelonephritis. This may be made worse by the constipation. Apparently, Dr. Mcclellan wanted her have a nephrostomy tube last time, but she refused, so we will hydrate her with normal saline. I think we will run it at 100 mL an hour. We will give her some stool softeners and see if we can correct the constipation. Previous cultures/urine cultures with no growth from 12/14/2019. Dr. Mcclellan requested meropenem. Will give 500 mg IV every 8 hours. We will give her some MiraLAX for the constipation, and I think we will go with 17 g twice a day and maybe put her on some Colace as well 100 mg twice a day. Put her on a liquid diet for now and tomorrow they can start a renal diet. 2. Solitary kidney. Her creatinine was 2.8. Looking back at her previous creatinines, it looks like her baseline creatinine is 2.0, so we will hydrate her some and change. Some more urine cultures and blood cultures if she spikes a temperature greater than 101.4 and follow her electrolytes. cc: Juan A Glover MD
[2019-12-30] MEDS: NS 1,000 ML IV SCH (17:40)
[2019-12-30] MEDS: ZOFRAN IV PRN (18:22)
[2019-12-30] MEDS: MORPHINE IV PRN (20:04)
[2019-12-30] MEDS: TYLENOL PO PRN (20:07)
[2019-12-30] MEDS: MIRALAX PO SCH (20:08)
[2019-12-30] MEDS: COLACE PO SCH (20:08)
[2019-12-30] MEDS: MERREM 500 MG in NS 50 ML IV SCH (23:45)
[2019-12-31] MEDS: TYLENOL PO PRN ×4 (02:46→21:20)
[2019-12-31] MEDS: MORPHINE IV PRN ×5 (02:47→23:44)
[2019-12-31] MEDS: NS 1,000 ML IV SCH ×3 (02:50→21:20)
[2019-12-31] MEDS: ZOFRAN IV PRN ×4 (02:51→21:12)
[2019-12-31] MEDS: MERREM 500 MG in NS 50 ML IV SCH ×3 (06:51→21:13)
[2019-12-31 07:19] LABS: CALCIUM 8.2 mg/dL (8.8-10.2); CREATININE 2.7 mg/dL (0.5-0.9); POTASSIUM 4.4 mmol/L (3.5-5.1)
[2019-12-31 07:49] LABS: BASO# 0.04 X1000 (0.0-0.2); BASO% 0.6 % (0.0-0.8); EOS# 0.09 X1000 (0.0-0.7); EOS% 1.4 % (0.0-10.0); HEMATOCRIT 25.6 % (37.0-47.0); HEMOGLOBIN 7.6 g/dL (12.0-16.0); LYMPH# 1.01 X1000 (1.2-3.4); LYMPH% 15.4 % (20.5-51.1); MCH 26.5 PG (27-31); MCHC 29.7 g/dL (33-37); MCV 89.2 FL (81-99); MONO# 0.51 X1000 (0.11-0.59); MONO% 7.8 % (1.7-9.3); MPV 9.5 FL (7.4-10.4); NEUT% 74.8 % (42.2-75.2); PLT 196 X1000 (130-400); RBC 2.87 XMIL (4.2-5.4); RDW 14.1 % (11.5-14.5); WBC 6.55 X1000 (4.8-10.8)
--- NOTE | 2019-12-31 09:40 | PROGRESS NOTE ---
DATE: 12/31/2019 SUBJECTIVE: Ms Zepeda was sleeping, resting comfortably. Her mom was at the bedside and talked with her. She is to be in less discomfort. She has a Vega catheter in place draining clear urine. PHYSICAL EXAMINATION: Vital signs: T-max was 100.9 degrees, temperature at present is 98.4, pulse 80, respirations 14, blood pressure 93/55. HEENT: Pupils are equal and round. Lungs: Clear in all lung padilla. Cardiovascular: Regular rhythm and rate without murmur or S3. Abdomen: Soft. Skin: Warm and dry. URINE OUTPUT: 3800 mL. ASSESSMENT AND PLAN: 1. She has congenital I think neurogenic bladder. She has lost her left kidney. Right hydronephrosis with pyelonephritis and discussed with the mother that it was very important that she catheterizes and she needs she catheterizations regularly, at least 3 times a day and needs to get out 350 mL each time and may need to catheterize more often. Mother expressed that she is having a hard time getting the catheters so we are going to continue her current antibiotics. She is on meropenem 500 mg IV q.8 hours. 2. Constipation. She is on Colace and MiraLAX, MiraLAX 17 g twice a day, Colace 100 mg twice a day. cc: Juan A Glover MD
[2019-12-31] MEDS: MIRALAX PO SCH ×2 (10:32→21:13)
[2019-12-31] MEDS: ICAR-C PLUS PO SCH (10:32)
[2019-12-31] MEDS: COLACE PO SCH ×2 (10:32→21:13)
--- NOTE | 2019-12-31 14:33 | CONSULTATION ---
DATE OF CONSULTATION: 12/31/2019 INTERIM NOTE: This 24-year-old female has a history of a neurogenic bladder, recurrent pyelonephritis and an absent left kidney. She was admitted with right pyelonephritis. She was recently hospitalized for pyelonephritis and her double-J stent that is chronically indwelling on the right side was changed. The patient's CT stone search that was obtained yesterday revealed the stent in good position. The kidney was somewhat dilated as well as the bladder was very distended. The patient was started on IV antibiotics. She states she is feeling better. The patient is supposed to be on clean intermittent catheterization at a daily frequency to keep the amount out with each catheterization between 300 and 400 mL. The patient and her family states that she has a hard time getting catheters. PAST MEDICAL HISTORY/SOCIAL HISTORY/SURGICAL HISTORY: See previous consult note of Dec 08. PHYSICAL EXAMINATION: General: A normally developed, thin, age apparent, white female, who is cooperative. HEENT: Normal for age. Lungs: Clear. Cardiovascular: Regular rate and rhythm. Abdomen: Soft. Right CVA tenderness but no guarding, left side is normal. Genitourinary: Foly cath in place draining cloudy urine. Extremities: No clubbing, cyanosis, or edema. Neuro: No focal deficits. LABORATORY EVALUATION: She has a white count of 6.55, hemoglobin 7.6, hematocrit 25.6 and platelets are 196,000. Serum electrolytes have a sodium 135, potassium 4.4, chloride 109, bicarb 18, BUN 32, creatinine 2.7. A urine culture preliminary is no growth. A CT stone search is as noted in the HPI. IMPRESSION: 1. Patient with congenital neurogenic bladder and urinary retention that has resulted in the loss of her left kidney and significant right hydroureteronephrosis and renal insufficiency. 2. Recurrent pyelonephritis. RECOMMENDATIONS: 1. Keep Vega catheter in place until the right pyelonephritis has resolved. 2. Start clean intermittent catheterization at a frequency to keep the amount out between 300 and 400 mL after foly is removed. 3. Discussed with patient and family that she will lose her right kidney unless she starts doing the clean intermittent catheterization. Thank you for this consultation. cc: MD MARIAN Hammer
[2020-01-01] MEDS: MERREM 500 MG in NS 50 ML IV SCH ×4 (02:21→21:42)
[2020-01-01] MEDS: TYLENOL PO PRN ×4 (03:35→23:08)
[2020-01-01] MEDS: MORPHINE IV PRN ×5 (06:07→21:23)
[2020-01-01] MEDS: ZOFRAN IV PRN ×5 (06:07→21:23)
[2020-01-01] MEDS: NS 1,000 ML IV SCH ×2 (06:21→21:43)
[2020-01-01] MEDS: MIRALAX PO SCH ×2 (09:23→21:51)
[2020-01-01] MEDS: COLACE PO SCH ×2 (09:23→21:51)
[2020-01-01] MEDS: ICAR-C PLUS PO SCH (09:23)
[2020-01-01] MEDS ORDERED: DULCOLAX PR PRN (13:32)
[2020-01-01] MEDS: MILK OF MAGNESIA PO SCH ×2 (14:16→21:51)
--- NOTE | 2020-01-01 15:35 | PROGRESS NOTE ---
DATE: 01/01/2020 Ms Toro IV infiltrated and so she is kind of upset. Her back pain is better. She is hungry so I am going to put her on a regular diet. T-max was 101.5, temperature now 99.2, pulse 88, respirations 16, blood pressure 103/56. Pupils are equal and round. Lungs are clear in all lung padilla. Cardiovascular exam regular rate without murmur or S3. Abdomen is soft. Skin is warm and dry. Urine output was 2200 mL. ASSESSMENT AND PLAN: 1. Patient with congenital neurogenic bladder, urinary retention, resulted in the loss of her left kidney, significant right hydronephrosis with pyelonephritis and renal insufficiency. Continue IV fluids. Continue antibiotics and review of her orders, Colace 100 mg b.i.d., she is getting MiraLAX twice a day. I am going to give her some milk of magnesia today too still has not had a bowel movement. Continue meropenem 500 mg IV q.8. LAB: Electrolytes and CBC from yesterday, hematocrit was 25, hemoglobin 7.6. Electrolytes, sodium 135, potassium 4.4, chloride 109, BUN 32, creatinine 2.7. cc: Juan A Glover MD
[2020-01-02] MEDS: ZOFRAN IV PRN ×4 (01:34→15:02)
[2020-01-02] MEDS: MORPHINE IV PRN ×5 (01:34→20:45)
[2020-01-02] MEDS: MERREM 500 MG in NS 50 ML IV SCH ×4 (05:50→20:44)
[2020-01-02] MEDS: TYLENOL PO PRN (06:20)
--- NOTE | 2020-01-02 07:46 | PROGRESS NOTE ---
DATE: 01/02/2020 SUBJECTIVE: The patient was admitted on Thursday for right flank pain, concerning for pyelonephritis. She had a CT scan performed which showed hydronephrotic kidney which appears to be chronic for her. However, it was slightly worsened from previous CT scan with distended bladder. Renal functions remain stable. The patient has made a large amount of urinary output. She has indwelling catheter in place with 3 L recorded yesterday. She has intermittently had fevers; was as high as 102.7 yesterday and tachycardic to 97, blood pressure is 114/68. The patient's blood and urine cultures are negative to date. Urine cultures finalized negative and blood cultures are negative at 48 hours. The patient complains of right upper quadrant abdominal pain, feels sick to her stomach which she associates with taking medications for constipation. Urine remains clear yellow with no clots or sediment. OBJECTIVE: Vital Signs: On physical examination, temperature 98.9 degrees, heart rate 78, blood pressure 99/57, oxygen saturation 96% on room air. General: No acute distress. Resting comfortably in bed. Alert and oriented x3. Respiratory: Good respiratory effort without audible wheezing or rales. Abdomen: Soft, nontender, nondistended. No palpable masses. : No suprapubic tenderness. No CVA tenderness. Urethral catheter in place draining clear yellow urine. MICROBIOLOGY: Urine culture no growth. Blood cultures no growth to date. ASSESSMENT AND PLAN: Ms. Toro is a 24-year-old with history of neurogenic bladder with solitary right kidney after a left nephrectomy. The patient has had chronic hydronephrosis and had serial stenting for the last several years. The patient has previously had nephrostomy tube placement. I talked with her again today regarding placement of nephrostomy tube. Her and her grandmother are hesitant to proceed with any type of nephrostomy tube as patient had discomfort with the tube in place. The patient's renal function is relatively stable for her; was 2.7 on Thursday, 2.8 on admission, and her baseline is between 2.6 and 2.8. She continues to make a large amount of urinary output. The patient has had solitary kidney, would have no output if she was obstructed. The patient's bladder was quite full on initial CT scan. We will plan to obtain a renal ultrasound with indwelling catheter in place to assess for degree of resolution of her hydronephrosis. I do think the patient will have chronic hydronephrosis. Stent did appear to be within the proximal ureter versus renal pelvis. I think it is deceptive due to the size of her renal pelvis and likely refluxing urine up the stent. If the patient continues to have significant hydronephrosis. The next option would be to place nephrostomy tube. We will continue to monitor. Urine cultures and blood cultures have been negative to date. Uncertain if this is truly pyelonephritis versus another underlying issue leading to her symptoms. I think her pain could be related to the hydronephrosis. However, due to the chronic dilation in her system, I am not sure if hydronephrosis will ever completely resolve. We will continue to monitor from a urologic standpoint. Please call with questions or concerns. cc: Constantine Mcclellan MD MTDKyaw
--- NOTE | 2020-01-02 08:32 | Diag Imaging Result Doc PS360 ---
US RENAL 2 (RETROPER) COMPLETE - 01/02/2020 INDICATION: Solitary kidney, CKD TECHNIQUE: COMPARISON: CT from 12/30/2019 FINDINGS: There has been resolution of the right hydronephrosis. The right kidney is grossly normal in size. The right kidney measures 15.2 x 6.3 x 5.9 cm. There is a Vega catheter in the urinary bladder. The urinary bladder is completely collapsed. IMPRESSION: No obstruction. Electronically signed by Rosalio Bryant 01/02/2020 8:30 AM
[2020-01-02] MEDS: MILK OF MAGNESIA PO SCH ×2 (09:05→20:46)
[2020-01-02] MEDS: MIRALAX PO SCH ×2 (09:06→20:46)
[2020-01-02] MEDS: COLACE PO SCH ×2 (09:07→20:46)
[2020-01-02] MEDS: ICAR-C PLUS PO SCH (09:07)
[2020-01-02] MEDS: NS 1,000 ML IV SCH ×2 (09:10→20:45)
--- NOTE | 2020-01-02 10:07 | PROGRESS NOTE ---
DATE: 01/01/2020 SUBJECTIVE: Ms Zepeda is feeling better, but she did spike another fever last night. I think the pain is diminished. She is eating. She had a temperature of 102 degrees. Vega catheter is in place. Clear yellow urine. EXAM: Temp 102.4 degrees, pulse 96, respirations 18, blood pressure 114/58.HEENT: Pupils are equal and round. Lungs: Clear in all lung padilla. Cardiovascular: Regular rhythm and rate without murmur or S3. Abdomen: Soft. Skin: Warm and dry. URINE OUTPUT: 4700 mL. ASSESSMENT AND PLAN: 1. Neurogenic bladder. She has lost her left kidney. The right kidney with some acute kidney injury. 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 Creatinine is 2.7 on the . We are going to recheck her electrolytes again tomorrow and check a creatinine and her magnesium. She has pyelonephritis. Continue current antibiotic. 2. Constipation. She got some good results from the MiraLAX and they gave her Dulcolax suppository yesterday. 3. History of iron deficiency anemia. 4. Chronic kidney disease stage 3. I have emphasized that she is going to need to make sure she has Vega catheter. She will need to cath a minimum of 3 to 4 times a day to try and keep the urine volume from building up past 300 mL. When she gets more than 350 mL of fluid this corresponds to a greater than 40 mm water pressure and it causes reflux on the kidney and she is going to damage that right kidney to the place where she will need dialysis, so we will get social workers to make sure she has plenty supply of catheters. She is going to need another 48 hours of antibiotic I believe but it looks like we are heading in the right direction. Recheck her CBC and electrolytes tomorrow. cc: Juan A Glover MD
[2020-01-03] MEDS: MORPHINE IV PRN ×4 (01:00→20:17)
[2020-01-03] MEDS: MERREM 500 MG in NS 50 ML IV SCH ×2 (06:13→07:36)
[2020-01-03 06:40] LABS: CALCIUM 8.1 mg/dL (8.8-10.2); CREATININE 2.3 mg/dL (0.5-0.9); MAGNESIUM 1.6 mg/dL (1.5-2.7); POTASSIUM 4.2 mmol/L (3.5-5.1)
[2020-01-03] MEDS: ZOFRAN IV PRN ×4 (06:50→21:38)
[2020-01-03 07:40] LABS: BASO# 0.01 X1000 (0.0-0.2); BASO% 0.5 % (0.0-0.8); EOS# 0.49 X1000 (0.0-0.7); EOS% 26.9 % (0.0-10.0); HEMATOCRIT 25.5 % (37.0-47.0); HEMOGLOBIN 7.8 g/dL (12.0-16.0); LYMPH# 0.85 X1000 (1.2-3.4); LYMPH% 46.7 % (20.5-51.1); MCH 26.5 PG (27-31); MCHC 30.6 g/dL (33-37); MCV 86.7 FL (81-99); MONO# 0.13 X1000 (0.11-0.59); MONO% 7.1 % (1.7-9.3); MPV 9.7 FL (7.4-10.4); NEUT% 18.8 % (42.2-75.2); PLT 128 X1000 (130-400); RBC 2.94 XMIL (4.2-5.4); RDW 13.7 % (11.5-14.5); WBC 1.82 X1000 (4.8-10.8)
[2020-01-03 07:41] LABS: NEUT# 0.34 X1000 (1.4-6.5)
[2020-01-03] MEDS: COLACE PO SCH ×2 (08:08→20:05)
[2020-01-03] MEDS: ICAR-C PLUS PO SCH (08:08)
[2020-01-03] MEDS: DETROL LA PO SCH (08:08)
[2020-01-03] MEDS: NS 1,000 ML IV SCH ×3 (08:10→19:21)
[2020-01-03] MEDS: MILK OF MAGNESIA PO SCH (08:10)
[2020-01-03] MEDS: MIRALAX PO SCH ×2 (08:10→20:05)
[2020-01-03 08:21] LABS: BANDS 9 % (0-1); EOS 16 % (1-10); LYMPHS 40 % (21-51); SEGS 35 % (42-75)
[2020-01-03 09:41] LABS: RETIC% 0.61 % (0.8-2.1); RETIC-HE 24.2 PG (28.2-36.6)
[2020-01-03 10:11] LABS: IRON SATURATION 13 %; TIBC 152 ug/dL; TOTAL IRON 19 ug/dL (49-151); UNBOUND IRON 133 ug/dL (112-346)
--- NOTE | 2020-01-03 13:20 | Diag Imaging Result Doc PS360 ---
ABDOMEN FLAT/UPRIGHT - 01/03/2020 INDICATION: abdominal pain COMPARISON: 12/30/2019 FINDINGS: There is a right nephroureteral stent in good position. There is a nonobstructive bowel gas pattern. No free air or abnormal calcifications. There is no constipation. IMPRESSION: No acute disease. Electronically signed by Rosalio Bryant 01/03/2020 1:17 PM
[2020-01-03] MEDS: LEVAQUIN 500 MG/D5W 500 MG/100 ML IVPB IV SCH ×2 (13:26→15:55)
[2020-01-03] MEDS: PROTONIX IV SCH ×2 (13:27→23:54)
[2020-01-03 13:57] LABS: URINE SOURCE CATH
[2020-01-03 14:05] LABS: BILIRUBIN URINE NEGATIVE (NEGATIVE); BLOOD URINE TRACE (NEGATIVE); COLOR STRAW; GLUCOSE URINE NEGATIVE (NEGATIVE); KETONE URINE NEGATIVE (NEGATIVE); LEUKOCYTES URINE SMALL (NEGATIVE); NITRITE URINE NEGATIVE (NEGATIVE); PH URINE 6.5; PROTEIN URINE 30 mg/dL (NEGATIVE); SP GRAVITY URINE 1.008; TURBIDITY URINE CLEAR (CLEAR); UR EPITHELIAL CELLS <10 /HPF (<10); URINE BACTERIA NEGATIVE /HPF; URINE WBC <10 /HPF (<10); UROBILINOGEN URINE NORMAL (NORMAL)
--- NOTE | 2020-01-03 14:46 | Diag Imaging Result Doc PS360 ---
BA SWALLOW-ESOPHAGUS - 01/03/2020 INDICATION: dysphagia TECHNIQUE: COMPARISON: None FINDINGS: The patient reports difficulty swallowing and vomiting due to being ill with a febrile illness. The patient's anatomy is normal. Electronically signed by Rosalio Bryant 01/03/2020 2:44 PM
--- NOTE | 2020-01-03 20:41 | HEMO/ONC CONSULTATION ---
DATE: 01/03/2020 REASON FOR CONSULTATION: Pancytopenia. HISTORY OF PRESENT ILLNESS: Ms. Zepeda is a pleasant 24-year-old patient with a known history of renal disease, solitary kidney, and neurogenic bladder, currently undergoing self- catheterizations twice daily. She recently developed significant pain in the right flank, with admission for further evaluation on 12/30/2019. Imaging workup revealed hydronephrosis with apparent pyelonephritis. The patient was admitted for further monitoring and management purposes. On admission, her WBC was normal, however, she has now developed pancytopenia with a WBC of 1.8, as well as worsening anemia with a hemoglobin of 7.8, and thrombocytopenia with a platelet count of 128. Dr. Sandee Castillo with [facility] has been consulted for further evaluation and recommendations from a hematological standpoint. ALLERGIES: Rocephin and iodine. PAST MEDICAL HISTORY: 1. Chronic kidney disease stage 3 with single right solitary kidney. 2. Neurogenic bladder with self catheterization. 3. Renal stones. 4. Iron deficiency anemia. PAST SURGICAL HISTORY: Left nephrectomy, right ureteral stent, nephrostomy tube placement, cleft palate repair. SOCIAL HISTORY: Tobacco none. Alcohol none. Illicit drugs none. FAMILY HISTORY: Mother with no medical conditions. Father unknown. REVIEW OF SYSTEMS: Patient does report general malaise. Denies recent fever or chills. She denies shortness of breath, cough, dyspnea on exertion. No chest pain. She does complain of right flank and side pain as noted above. PHYSICAL EXAMINATION: General: Pleasant, young female, mildly ill in appearance, seen while lying in hospital bed. In. HEENT: Atraumatic, normocephalic. PERRL. EOMI. Lungs: Bilateral breath sounds, clear to auscultation. Heart: S1, S2. Regular rate and rhythm. No murmur, gallop, or rub. Abdomen: Soft, nondistended. Bowel sounds positive. Extremities: No cyanosis, clubbing, or edema. Skin: Clean, warm, dry and intact. Neuro: Alert and oriented with no deficit appreciated. LAB: CBC: WBCs of 1.82, hemoglobin 7.8, hematocrit 25.5, platelet count 128. CMP: Sodium 139, potassium 4.2, chloride 112, CO2 19, BUN 15, creatinine 2.3, glucose 89. Blood cultures times 2 were negative. Urinalysis per catheterization, negative. ASSESSMENT AND PLAN: 1. Pancytopenia with likely underlying inflammatory process, with an elevated CRP and abnormal ESR. We will order additional workup to determine etiology, including viral assessment for CMV, EBV, hepatitis, and HIV. We will also include additional inflammatory evaluation with KIN and RF, as well as LDH. Ferritin level remains pending. Will monitor to determine further recommendation for iron replacement. Possible relation to medication, patient is currently on meropenem. Will discuss with managing provider regarding negative culture findings and possible discontinuation of meropenem or transition to alternative therapy if recommended. 2. Solitary kidney with baseline creatinine of 2.0, current creatinine 2.3. Management per Nephrology. Again we appreciate the consult on this pleasant young lady regarding history of pancytopenia. We will await further workup results prior to further discussion and recommendations. Dictated by FELY Muhammad for Sandee Castillo MD cc: Sandee Castillo MD I have seen and examined the patient and agree with the above note. It reflects my history, physical exam, assessment and plan. Sandee FONSECA
--- NOTE | 2020-01-03 22:03 | PROGRESS NOTE ---
DATE: 01/03/2020 SUBJECTIVE: The patient is resting comfortably in bed. She complains of right flank pain. She reports that she had intermittent episodes of dysphagia for solids and liquids; however, her barium esophagram today was normal. OBJECTIVE: Vital Signs: Temperature 97.9 degrees, blood pressure 130/79, heart rate 73, respirations 18, O2 saturation 97% on room air. General: This is a young female lying in bed in no acute distress. Heart: S1, S2 normal. Regular rate and rhythm. Lungs: Clear to auscultation bilaterally. Abdomen: Positive bowel sounds. Soft, nontender, nondistended. Extremities: No edema no cyanosis. Neurologic: The patient is alert and oriented x3. LABORATORY DATA: White blood cell count 1.8, hemoglobin 7.8, hematocrit 25, platelets 128,000, neutrophilic count 0.34. Sodium 139, potassium 4.2, chloride 112, CO2 19, BUN 15, creatinine 2.3, glucose 89. ASSESSMENT AND PLAN: 1. Right-sided pyelonephritis with right hydronephrosis. The renal ultrasound done yesterday reveals resolution of the hydronephrosis. The patient continues to complain of right flank pain. The urine culture is negative. We will switch the patient to Levaquin. We will stop the meropenem since it is causing pancytopenia. 2. Chronic kidney disease stage 4. Stable. 3. History of recurrent urinary tract infections. Aware. 4. Neurogenic bladder with a solitary right kidney status post left nephrectomy. Aware. 5. Pancytopenia. The case was discussed with Dr. Castillo. After reviewing the patient's medications, it was thought it was determined that the patient is on meropenem, which can cause pancytopenia. This medication has been discontinued. We will monitor the patient's counts closely. The patient is on neutropenic precautions at this time. 6. Deep vein thrombosis prophylaxis. The patient is ambulatory. We will start heparin. cc: Ana Rowan MD
[2020-01-03] MEDS: HEPARIN SUBQ SCH (23:54)
[2020-01-04] MEDS: PROTONIX IV SCH ×2 (01:45→15:29)
[2020-01-04] MEDS: NS 1,000 ML IV SCH ×2 (01:45→15:27)
[2020-01-04] MEDS: ZOFRAN IV PRN ×2 (05:37→17:21)
[2020-01-04 07:22] LABS: ALBUMIN 2.5 g/dL (3.5-5.0); CALCIUM 8.1 mg/dL (8.8-10.2); PHOSPHORUS 3.2 mg/dL (2.7-4.5); POTASSIUM 4.2 mmol/L (3.5-5.1)
[2020-01-04 07:29] LABS: BASO# 0.03 X1000 (0.0-0.2); BASO% 1.4 % (0.0-0.8); EOS# 0.53 X1000 (0.0-0.7); EOS% 24.3 % (0.0-10.0); HEMOGLOBIN 8.3 g/dL (12.0-16.0); LYMPH# 0.98 X1000 (1.2-3.4); MCH 26.3 PG (27-31); MCHC 30.7 g/dL (33-37); MCV 85.4 FL (81-99); MONO% 9.2 % (1.7-9.3); MPV 9.9 FL (7.4-10.4); NEUT# 0.44 X1000 (1.4-6.5); NEUT% 20.1 % (42.2-75.2); PLT 148 X1000 (130-400); RBC 3.16 XMIL (4.2-5.4); RDW 13.6 % (11.5-14.5); WBC 2.18 X1000 (4.8-10.8)
[2020-01-04 07:40] LABS: BANDS 14 % (0-1); EOS 20 % (1-10); LYMPHS 38 % (21-51); MONO 4 % (1-9); SEGS 24 % (42-75)
[2020-01-04 09:20] LABS: HIV ANTIBODY SCREEN SEE COMMENTS
[2020-01-04 11:46] LABS: HEPATITIS PROFILE ACUTE SEE COMMENTS
[2020-01-04] MEDS: COLACE PO SCH ×2 (12:54→20:23)
[2020-01-04] MEDS: DETROL LA PO SCH (12:54)
[2020-01-04] MEDS: HEPARIN SUBQ SCH ×3 (12:55→22:31)
[2020-01-04] MEDS: ICAR-C PLUS PO SCH (12:55)
[2020-01-04] MEDS: MIRALAX PO SCH ×2 (12:55→20:23)
--- NOTE | 2020-01-04 14:45 | GASTROENTEROLOGY CONSULTATION ---
DATE: 01/04/2020 REASON FOR CONSULT: Nausea, vomiting, and dysphagia. HISTORY OF PRESENT ILLNESS: Ms. Zepeda is a 24-year-old female with a history of chronic kidney disease stage 3, neurogenic bladder, has to do self catheterize, kidney stones in the past with stent placements, left nephrectomy, cleft palate repair, right ureteral stent and nephrostomy placement in the past. The patient has been here in the hospital since 12/30/2019. She came with the complaints of pain on the right of the abdomen radiating to the back with nausea and vomiting. The patient complains that she has constant vomiting no matter what she eats. Has difficulty swallowing. The patient did have a menstrual cycle at the first of the month and she says that during the first 4 days she has heavy bleeding. She sees Dr. Constantine Layne at the [facility] in [place] and Dr. Mcclellan had seen her on the her previous admission. The patient's abdomen and pelvis CT had shown slightly worsened right hydronephrosis besides the presence of urethral stent, constipation, apparently improved cystitis. Renal ultrasound on 01/01 showed no obstruction. Abdominal x-ray on 01/02 has shown no acute disease. The patient had a barium swallow which showed that the patient's anatomy is normal. PAST MEDICAL HISTORY: Chronic kidney disease stage 3, anemia. She has a neurogenic bladder, does self catheterization, kidney stones, cleft palate. PAST SURGICAL HISTORY: Left nephrectomy, right ureteral stent, nephrostomy placements in the past, and cleft palate repair in the past. SOCIAL HISTORY: The patient is single, lives with a boyfriend. She has denied any tobacco, alcohol, or illicit drug use. FAMILY HISTORY: No significant GI malignancies. ALLERGIES: The patient is allergic to Rocephin and povidone-iodine. HOME MEDICATIONS: Iron tablets 1 tablet daily. REVIEW OF SYSTEMS: As per HPI. Otherwise, 12 point review of system is negative. PHYSICAL EXAMINATION: Vital Signs: Temperature 97.9, pulse 64, respirations 15, blood pressure 126/78, oxygen saturation 97% on room air. The patient's weight is 90 pounds, BMI is 17.1 kg/m2. General: She is alert, oriented x3, answering questions appropriately, and in no acute distress. HEENT: Pale conjunctivae. No icterus. PERRL. Neck: Supple. Lungs: Clear. Cardiovascular: Regular rate and rhythm. Abdomen: Soft, nondistended, nontender. Active bowel sounds heard in all 4 quadrants. Extremities: No clubbing. No cyanosis. No edema. Pedal pulses 2+, present bilaterally. Neurologic: Alert and oriented x3. Nonfocal. Cranial nerves 2-12 are grossly intact. LABS: WBCs 2.18, RBCs 3.16, hemoglobin 8.3, hematocrit 27.0, platelet count is 148,000. Sodium 142, potassium 4.2, chloride 114, carbon dioxide 18, anion gap 10, BUN 13, creatinine 2.0, glucose is 95, calcium is 8.1, phosphorus is 3.2, albumin is 2.5. The patient's urinalysis yesterday showed protein of 30, trace of blood, small amount of leukocytes. The patient's IgE serum is 48. Her rheumatoid factor semi-quantitative is 10. The patient's hepatitis profile is nonreactive. Her HIV 1 and 2 antibody screen is nonreactive. IMPRESSIONS AND PLAN: 1. Nausea and vomiting. 2. Dysphagia. 3. Pancytopenia. 4. Chronic kidney disease. 5. Anemia of chronic disease. 6. 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 7. Right-sided pyelonephritis with hydronephrosis. 8. H/o recurrent urinary tract infection. PLAN: Ms. Zepeda is a 24-year-old female with a history of chronic kidney disease and neurogenic bladder. GI has been consulted for nausea, vomiting, and dysphagia. The patient had a barium swallow x-ray done and it showed that the patient's anatomy was normal. The patient is receiving antiemetic, Zofran, for nausea and vomiting. The patient is neutropenic with her neutrophils being 0.44 and the WBCs are 2.18. The patient is currently on reverse isolation. She is receiving IV fluids, normal saline at 100 mL/hr. The patient is on a bowel regimen, Colace and MiraLAX twice a day. She is receiving iron tablets. She is on antibiotic, Levaquin, for her pyelonephritis. We currently do not plan to do any procedures. We will follow her up as an outpatient in 4 to 6 weeks after she is discharged. This plan was discussed with Dr. Abrams. Thank you for your consult. Please call us for any further questions or concerns. Dictated by FELY Tarango for Chirag Abrams MD Physician Attestation I have seen and examined the patient. I have discussed and reviewed the note by Marleni GEIGER and agree with findings and plan as documented. In brief, Ms. Zepeda is a 24 year old woman with h/o recurrent pyelonephritis s/p left nephrectomy, CKD3, AOCD who presented with N/V/F and abdominal pain in the setting of pyelonephritis. Course complicated by pancytopenia. Her anemia appears to be AOCD. She also has history of menorrhagia. She currently does not have a [employer]. Recommend continued supportive care with antiemetics and PPI. She has rare dysphagia and N/V prior to onset of infection. No indication for endoscopic procedures at this time unless she does not improve with supportive care. She is higher risk with invasive procedures given neutropenia. Will follow with you. MARIAN
[2020-01-04] MEDS: LEVAQUIN 500 MG/D5W 500 MG/100 ML IVPB IV SCH (15:28)
[2020-01-04] MEDS: SODIUM CHLORIDE 0.9% INJ SCH (15:29)
--- NOTE | 2020-01-04 20:37 | PROGRESS NOTE ---
DATE: 01/04/2020 SUBJECTIVE: The patient is resting comfortably in bed. Her pain is slightly improved in the right flank area. She denies any nausea or vomiting. OBJECTIVE: Vital Signs: Temperature 97.9 degrees, blood pressure 118/77, heart rate 66, respirations 18, O2 saturation 97% on room air. General: This is a young female lying in bed in no acute distress. Heart: S1, S2, normal. Lungs: Clear to auscultation bilaterally. Abdomen: Positive bowel sounds, soft, nontender, nondistended. Extremities: No edema, no cyanosis. Neurologic: The patient is alert and oriented x3. LABORATORIES: White blood cell count 2.1, ANC 0.44, hemoglobin 8.3, hematocrit 27, platelets 148,000. Sodium 142, potassium 4.2. BUN 13, creatinine 2, glucose 95, calcium 8.1, albumin 2.5. ASSESSMENT AND PLAN: 1. Right-sided pyelonephritis with right hydronephrosis. The patient appears to be tolerating the antibiotic therapy without any difficulty. We will likely transition to an oral antibiotic on the day of discharge. 2. Pancytopenia with neutropenia. Likely secondary to Merrem. The patient's counts are slowly improving. We will continue to monitor closely off of the offending agent. Hematology is following. 3. Constipation. Continue on MiraLAX and Colace. 4. Chronic kidney disease, stage III. Stable. 5. History of recurrent urinary tract infections. Aware. 6. Neurogenic bladder with a solitary right kidney status post left nephrectomy. Aware. 7. Deep vein thrombosis prophylaxis. Continue on heparin. 8. Disposition. Once the patient's counts are stable, she can be discharged home with antibiotic therapy. cc: Ana Rowan MD
[2020-01-04] MEDS: LACTULOSE PO SCH (22:12)
[2020-01-05] MEDS: PROTONIX IV SCH (02:12)
[2020-01-05] MEDS: SODIUM CHLORIDE 0.9% INJ SCH (02:12)
[2020-01-05] MEDS: ZOFRAN IV PRN ×2 (05:08→21:52)
[2020-01-05 06:35] LABS: BASO# 0.02 X1000 (0.0-0.2); BASO% 0.8 % (0.0-0.8); EOS% 12.2 % (0.0-10.0); HEMATOCRIT 25.1 % (37.0-47.0); HEMOGLOBIN 7.8 g/dL (12.0-16.0); IMM GRAN# 0.02 X1000 (0.0-0.04); IMM GRAN% 0.8 % (0.0-0.5); LYMPH# 1.14 X1000 (1.2-3.4); LYMPH% 46.5 % (20.5-51.1); MCH 26.2 PG (27-31); MCHC 31.1 g/dL (33-37); MCV 84.2 FL (81-99); MONO# 0.22 X1000 (0.11-0.59); MPV 9.7 FL (7.4-10.4); NEUT# 0.75 X1000 (1.4-6.5); NEUT% 30.7 % (42.2-75.2); PLT 176 X1000 (130-400); RBC 2.98 XMIL (4.2-5.4); RDW 13.6 % (11.5-14.5); WBC 2.45 X1000 (4.8-10.8)
[2020-01-05 06:56] LABS: ALBUMIN 2.7 g/dL (3.5-5.0); CALCIUM 8.4 mg/dL (8.8-10.2); PHOSPHORUS 3.2 mg/dL (2.7-4.5); POTASSIUM 4.2 mmol/L (3.5-5.1)
[2020-01-05] MEDS: COLACE PO SCH ×2 (10:10→21:52)
[2020-01-05] MEDS: DETROL LA PO SCH (10:11)
[2020-01-05] MEDS: ICAR-C PLUS PO SCH (10:11)
[2020-01-05] MEDS: LACTULOSE PO SCH ×2 (10:11→23:17)
[2020-01-05] MEDS: HEPARIN SUBQ SCH ×2 (10:12→23:17)
[2020-01-05] MEDS: MIRALAX PO SCH ×2 (10:12→23:17)
--- NOTE | 2020-01-05 11:40 | GASTROENTEROLOGY PROGRESS NOTE ---
DATE: 01/05/2020 SUBJECTIVE: Ms. Zepeda is a 24-year-old female. She is resting in bed. The patient has denied any nausea, vomiting, or abdominal pain today. She is currently on a regular diet and was able to tolerate her diet fairly well. The patient did have a bowel movement today. OBJECTIVE: Vital Signs: Temperature 98 degrees, pulse 67, respirations 16, blood pressure 130/80, oxygen saturation 99% on room air. The patient's weight is 90 pounds, BMI is 17.1 kg/m2. General: She is alert, oriented x3, in no acute distress. HEENT: Pale conjunctivae. No icterus. PERRL. Neck: Supple. Lungs: Clear to auscultation. Cardiovascular: Regular rate and rhythm. Abdomen: Soft, nontender, nondistended. Active bowel sounds heard in all 4 quadrants. Extremities: No clubbing, no cyanosis, no edema. Pedal pulses 2+ present bilaterally. Neurologic: She is alert, oriented x3. LABORATORY DATA: WBCs are 2.45, RBCs 2.98, hemoglobin 7.8, hematocrit is 25.1, platelet count 176,000. Sodium 140, potassium 4.2, chloride 112, carbon dioxide 19, anion gap is 9, BUN is 14, creatinine is 2.0, glucose is 105, calcium is 8.4. Phosphorus is 3.2, albumin is 2.7. The patient's KIN screen with reflex antibodies is positive. IMPRESSION AND PLAN: 1. Nausea and vomiting. 2. Dysphagia. 3. Pyelonephritis. 4. Pancytopenia. 5. Anemia. 6. Neurogenic bladder. 7. Recurrent urinary tract infection. PLAN: Ms. Zepeda is a 24-year-old female with a history of chronic kidney disease and neurogenic bladder. GI has been following her for nausea, vomiting, and dysphagia. Currently the patient has been able to tolerate her diet fairly well. She has denied any nausea, vomiting, or any swallowing problems. The patient's WBCs have been 2.45 and her neutrophils have been 0.75. She is neutropenic. She is on reverse isolation. We do not plan to do any procedures currently in the hospital until the patient's labs are WNL. We will follow her up as an outpatient. For now, we will sign off. Please call us for any further questions or concerns. This plan was discussed with Dr. Cardoza. Dictated by FELY Tarango for Stefan Cardoza MD cc: Stefan Cardoza MD I have seen and examined the patient myself and I agree with the above plan of care. Please call us with any further questions or concerns. MTDD
[2020-01-05] MEDS ORDERED: ULTRAM PO PRN (15:07)
[2020-01-05] MEDS: LEVAQUIN PO SCH (16:05)
[2020-01-05] MEDS: TYLENOL PO PRN (16:12)
--- NOTE | 2020-01-05 16:14 | PROGRESS NOTE ---
DATE: 01/05/2020 SUBJECTIVE: The patient is resting comfortably in bed. She is eating well. No acute events noted overnight. OBJECTIVE: Vital Signs: Temperature 98.4 degrees, blood pressure 127/73, heart rate 65, respirations 16, O2 saturation 100% on room air. General: This is a young female lying in bed in no acute distress. Heart: S1, S2 normal. Regular rate and rhythm. Lungs: Equal air entry bilaterally. No wheezing. No rales. No rhonchi. Abdomen: Positive bowel sounds. Soft, nontender, nondistended. Extremities: No edema, no cyanosis. Neurologic: The patient is alert and oriented x3. LABORATORY DATA: White blood cell count 2.4, hemoglobin 7.8, hematocrit 25, platelets 176,000, sodium 140, potassium 4.2 ,chloride 112, CO2 19, BUN 14, creatinine 2, glucose 105, calcium 8.4. ASSESSMENT AND PLAN: 1. Right-sided pyelonephritis with right hydronephrosis. Improved. The patient has been switched to oral Levaquin. She will follow up with Dr. Mcclellan as outpatient upon discharge. 2. Pancytopenia with neutropenia. This was likely secondary to Merrem. The counts continue to improve daily. 3. Constipation. Improved. Continue with the current laxative regimen. 4. Chronic kidney disease stage 3. Stable. 5. Neurogenic bladder with a solitary kidney, status post a left nephrectomy. Aware. 6. Deep vein thrombosis prophylaxis. Continue on heparin. 7. Disposition. Once neutropenia has resolved the patient can be discharged home with followup. cc: Ana Rowan MD
[2020-01-06] MEDS: PRILOSEC PO SCH ×2 (05:51→08:32)
[2020-01-06 06:49] LABS: BASO# 0.02 X1000 (0.0-0.2); BASO% 0.7 % (0.0-0.8); EOS# 0.36 X1000 (0.0-0.7); EOS% 12.6 % (0.0-10.0); HEMATOCRIT 25.6 % (37.0-47.0); HEMOGLOBIN 7.9 g/dL (12.0-16.0); IMM GRAN# 0.03 X1000 (0.0-0.04); IMM GRAN% 1.1 % (0.0-0.5); LYMPH# 0.94 X1000 (1.2-3.4); MCH 26.2 PG (27-31); MCHC 30.9 g/dL (33-37); MCV 84.8 FL (81-99); MONO# 0.21 X1000 (0.11-0.59); MONO% 7.4 % (1.7-9.3); MPV 9.5 FL (7.4-10.4); NEUT# 1.29 X1000 (1.4-6.5); NEUT% 45.2 % (42.2-75.2); PLT 204 X1000 (130-400); RBC 3.02 XMIL (4.2-5.4); RDW 13.7 % (11.5-14.5); WBC 2.85 X1000 (4.8-10.8)
[2020-01-06 07:11] LABS: ALBUMIN 2.9 g/dL (3.5-5.0); CALCIUM 8.8 mg/dL (8.8-10.2); PHOSPHORUS 3.7 mg/dL (2.7-4.5); POTASSIUM 3.9 mmol/L (3.5-5.1)
[2020-01-06 08:17] VITALS: BP 119/75
--- NOTE | 2020-01-06 08:40 | GASTROENTEROLOGY PROGRESS NOTE ---
DATE: 01/04/2020 ADDENDUM REPORT: This is an addendum to the consult note that was dictated on 01/04/2020. IMPRESSION AND PLAN: 6. Neurogenic bladder. The patient does self-catheterizations. Dictated by FELY Tarango for Chirag Abrams MD MTDD
[2020-01-06] MEDS: DETROL LA PO SCH (08:43)
[2020-01-06] MEDS: MIRALAX PO SCH (08:43)
[2020-01-06] MEDS: ICAR-C PLUS PO SCH (08:43)
[2020-01-06] MEDS: COLACE PO SCH (08:43)
[2020-01-06] MEDS: LEVAQUIN PO SCH (08:43)
[2020-01-06] MEDS: LACTULOSE PO SCH (08:44)
[2020-01-06] MEDS: HEPARIN SUBQ SCH (10:00)
--- NOTE | 2020-01-13 16:08 | DISCHARGE SUMMARY ---
ADMISSION DATE: 12/30/2019 DISCHARGE DATE: 01/06/2020 FINAL DISCHARGE DIAGNOSES: 1. Right-sided acute pyelonephritis with right hydronephrosis. 2. Pancytopenia with neutropenia secondary to meropenem. 3. Constipation. 4. Chronic kidney disease stage III. 5. Neurogenic bladder with a solitary kidney CONSULTATIONS: 1. Urology consultation with Dr. Mcclellan. 2. Hematology consultation with Dr. Castillo. 3. GI consultation with Dr. Abrams. IMAGING: CT of the abdomen and pelvis performed on 12/30/2019 which revealed worsening right hydronephrosis, constipation, and improved cystitis. HOSPITAL COURSE: Miss Zepeda is a 24-year-old female with a history of a solitary right kidney. The patient has had multiple urologic procedures secondary to a distal ureteral obstruction and hydroureteronephrosis. The patient on this admission was diagnosed with pyelonephritis and started on antibiotic therapy after cultures were obtained. The patient did suffer from nausea, vomiting, and flank pain as a result of her infection. The patient performs intermittent self- catheterizations at home on a regular basis. On admission the patient was noted to be in acute kidney injury on chronic kidney disease which was thought to be secondary to the patient's underlying infection and an element of obstruction. Slowly over the course of the hospitalization with IV fluids and antibiotics the patient's clinical status improved. Her creatinine returned to her baseline of 2, the patient was making urine without any difficulty, and her flank pain improved. A renal ultrasound was performed that revealed no evidence of obstruction and resolution of the right hydronephrosis. While on meropenem the patient developed pancytopenia with neutropenia. The patient was seen by the cylinder press operator apprentice who recommended discontinuation of the meropenem. Once the offending agent was discontinued, the patient's counts improved. The patient continued to improve clinically and was ultimately cleared for discharge home. DISCHARGE MEDICATIONS: 1. Levaquin 500 mg oral daily x7 days. 2. Zofran 4 mg oral every 6 hours p.r.n. for nausea. 3. Detrol LA 2 mg oral daily. 4. Iron 1 tab oral daily. DISCHARGE DIET: Regular diet. ACTIVITY: As tolerated. FOLLOW-UP INSTRUCTIONS: The patient will need to follow up with Dr. Mcclellan as scheduled by his clinic. The patient will need to follow up with Dr. Abrams as scheduled by his clinic. cc: Ana Rowan MD [facility]
== END 2020-01-06 10:54 | disposition home or self-care (01) | DRG 699 ==
LOC: ED 09:55 → SUATTDRO 16:30 → EDIPHOLD 16:30 → 4N 18:41
PROVIDERS: ATTEND Internal Medicine